=== PATIENT | female | born 1950 | race African-American/Black ===

== ENCOUNTER 2017-04-19 13:56 | Day surgery (SDC) | payer MEDICARE, MEDICAID ==
[2017-04-19] MEDS ORDERED: Epoetin 40,000 UNITS/ML VIAL SC SCH (14:15)
== END 2017-04-19 14:22 | disposition home or self-care (01) ==
LOC: ONC/OP 13:56
PROVIDERS: ATTEND Internal Medicine Medical Oncology
DX: I12.9 Hypertensive chronic kidney disease with stage 1 through stage 4 chronic kidney disease, or unspecified chronic kidney disease (principal); N18.9 Chronic kidney disease, unspecified; D63.1 Anemia in chronic kidney disease; E11.22 Type 2 diabetes mellitus with diabetic chronic kidney disease; D50.8 Other iron deficiency anemias; Z88.5 Allergy status to narcotic agent
CPT/HCPCS: 36415; 82728; 96372; J0885

== ENCOUNTER 2017-05-31 14:15 | Day surgery (SDC) | payer MEDICARE, MEDICAID ==
[2017-05-31 14:30] VITALS: BP 115/55
[2017-05-31] MEDS ORDERED: Epoetin 40,000 UNITS/ML VIAL SC SCH (14:30)
== END 2017-05-31 14:31 | disposition home or self-care (01) ==
LOC: ONC/OP 14:15
PROVIDERS: ATTEND Internal Medicine Medical Oncology
DX: N18.9 Chronic kidney disease, unspecified (principal); D63.1 Anemia in chronic kidney disease; D50.9 Iron deficiency anemia, unspecified
CPT/HCPCS: 96372; J0885

== ENCOUNTER 2017-07-19 14:27 | Day surgery (SDC) | payer MEDICARE, MEDICAID ==
[2017-07-19] MEDS ORDERED: Epoetin 40,000 UNITS/ML VIAL SC SCH (15:15)
== END 2017-07-19 15:13 | disposition home or self-care (01) ==
LOC: ONC/OP 14:27
PROVIDERS: ATTEND Internal Medicine Medical Oncology
DX: N18.9 Chronic kidney disease, unspecified (principal); D63.1 Anemia in chronic kidney disease; Z88.5 Allergy status to narcotic agent
CPT/HCPCS: 96372; J0885

== ENCOUNTER 2017-08-23 13:44 | Day surgery (SDC) | payer MEDICARE, MEDICAID ==
[2017-08-23] MEDS ORDERED: Epoetin (NON-ESRD) 20,000 UNITS/ML ML SC SCH (14:15)
[2017-08-23] MEDS ORDERED: Epoetin 40,000 UNITS/ML VIAL SC SCH (14:30)
[2017-08-23 16:56] VITALS: BP 118/57; TEMP 97.4
== END 2017-08-23 16:56 | disposition home or self-care (01) ==
LOC: ONC/OP 13:44
PROVIDERS: ATTEND Internal Medicine Medical Oncology
DX: N18.9 Chronic kidney disease, unspecified (principal); D63.1 Anemia in chronic kidney disease
CPT/HCPCS: 96372; J0885

== ENCOUNTER 2017-09-28 13:52 | Day surgery (SDC) | payer MEDICARE, MEDICAID ==
[2017-09-28] MEDS ORDERED: Epoetin 40,000 UNITS/ML VIAL SC SCH (14:15)
[2017-09-28 14:17] VITALS: BP 119/60; TEMP 98.1
== END 2017-09-28 14:29 | disposition home or self-care (01) ==
LOC: ONC/OP 13:52
PROVIDERS: ATTEND Internal Medicine Medical Oncology
DX: D50.9 Iron deficiency anemia, unspecified (principal); N18.9 Chronic kidney disease, unspecified; D63.1 Anemia in chronic kidney disease
CPT/HCPCS: 96372; J0885

== ENCOUNTER 2017-11-08 14:01 | Day surgery (SDC) | payer MEDICARE, MEDICAID ==
[2017-11-08] MEDS ORDERED: Epoetin 40,000 UNITS/ML VIAL SC SCH (14:30)
[2017-11-08] MEDS ORDERED: Epoetin (NON-ESRD) 20,000 UNITS/ML ML SC SCH (14:30)
== END 2017-11-08 15:04 | disposition home or self-care (01) ==
LOC: ONC/OP 14:01
PROVIDERS: ATTEND Internal Medicine Medical Oncology
DX: I12.9 Hypertensive chronic kidney disease with stage 1 through stage 4 chronic kidney disease, or unspecified chronic kidney disease (principal); E11.22 Type 2 diabetes mellitus with diabetic chronic kidney disease; N18.9 Chronic kidney disease, unspecified; D63.1 Anemia in chronic kidney disease; D50.8 Other iron deficiency anemias
CPT/HCPCS: 96372; J0885

== ENCOUNTER 2017-11-29 14:14 | Day surgery (SDC) | payer MEDICARE, MEDICAID ==
[2017-11-29] MEDS ORDERED: Epoetin 40,000 UNITS/ML VIAL SC SCH (14:30)
[2017-11-29 16:13] VITALS: BP 136/84; TEMP 98.4
== END 2017-11-29 16:13 | disposition home or self-care (01) ==
LOC: ONC/OP 14:14
PROVIDERS: ATTEND Internal Medicine Medical Oncology
DX: N18.9 Chronic kidney disease, unspecified (principal); D63.1 Anemia in chronic kidney disease; D50.9 Iron deficiency anemia, unspecified
CPT/HCPCS: 82728; 96372; J0885

== ENCOUNTER 2018-01-10 14:06 | Day surgery (SDC) | payer MEDICARE, MEDICAID ==
[2018-01-10] MEDS ORDERED: Epoetin 40,000 UNITS/ML VIAL SC SCH (14:15)
[2018-01-10 14:52] VITALS: BP 159/73; TEMP 98.1
== END 2018-01-10 14:56 | disposition home or self-care (01) ==
LOC: ONC/OP 14:06
PROVIDERS: ATTEND Internal Medicine Medical Oncology
DX: N18.9 Chronic kidney disease, unspecified (principal); D63.1 Anemia in chronic kidney disease; D50.9 Iron deficiency anemia, unspecified; Z88.5 Allergy status to narcotic agent
CPT/HCPCS: 96372; J0885

== ENCOUNTER 2018-02-07 13:49 | Day surgery (SDC) | payer MEDICARE, MEDICAID ==
[2018-02-07] MEDS ORDERED: Epoetin 40,000 UNITS/ML VIAL SC SCH (14:15)
[2018-02-07 17:57] VITALS: BP 127/65; TEMP 97.9
== END 2018-02-07 14:43 | disposition home or self-care (01) ==
LOC: ONC/OP 13:49
PROVIDERS: ATTEND Internal Medicine Medical Oncology
DX: N18.9 Chronic kidney disease, unspecified (principal); D63.1 Anemia in chronic kidney disease; D50.8 Other iron deficiency anemias; Z88.5 Allergy status to narcotic agent
CPT/HCPCS: 96372; J0885

== ENCOUNTER 2018-03-02 14:58 | Outpatient (CLI) | payer MEDICARE, MEDICAID | END 2018-03-02 14:59 | disposition home or self-care (01) | LOC: BICMAMMO 14:58 | PROVIDERS: ATTEND Internal Medicine | DX: Z12.31 Encounter for screening mammogram for malignant neoplasm of breast (principal); Z80.3 Family history of malignant neoplasm of breast | CPT/HCPCS: 77063; 77067 ==

== ENCOUNTER 2018-03-07 13:39 | Day surgery (SDC) | payer MEDICARE, MEDICAID ==
[2018-03-07] MEDS ORDERED: Epoetin 40,000 UNITS/ML VIAL SC SCH (14:00)
== END 2018-03-07 15:03 | disposition home or self-care (01) ==
LOC: ONC/OP 13:39
PROVIDERS: ATTEND Internal Medicine Medical Oncology
DX: N18.9 Chronic kidney disease, unspecified (principal); D63.1 Anemia in chronic kidney disease; D50.8 Other iron deficiency anemias
CPT/HCPCS: 96372; J0885

== ENCOUNTER 2018-05-09 14:13 | Day surgery (SDC) | payer MEDICARE, MEDICAID ==
[2018-05-09 14:27] VITALS: BP 115/56; TEMP 98.5
[2018-05-09] MEDS ORDERED: Epoetin 40,000 UNITS/ML VIAL SC SCH (14:30)
== END 2018-05-09 16:17 | disposition home or self-care (01) ==
LOC: ONC/OP 14:13
PROVIDERS: ATTEND Internal Medicine Medical Oncology
DX: N18.9 Chronic kidney disease, unspecified (principal); D63.1 Anemia in chronic kidney disease; D50.8 Other iron deficiency anemias
CPT/HCPCS: 96372; J0885

== ENCOUNTER 2018-07-04 13:55 | Day surgery (SDC) | payer MEDICARE, MEDICAID ==
[2018-07-04] MEDS ORDERED: Epoetin 40,000 UNITS/ML VIAL SC SCH (14:15)
== END 2018-07-04 14:56 | disposition home or self-care (01) ==
LOC: ONC/OP 13:55
PROVIDERS: ATTEND Internal Medicine Medical Oncology
DX: N18.9 Chronic kidney disease, unspecified (principal); D63.1 Anemia in chronic kidney disease; Z88.5 Allergy status to narcotic agent
CPT/HCPCS: 96372; J0885

== ENCOUNTER → 2018-08-01 | Day surgery (SDC) | payer MEDICARE, MEDICAID ==
[~2018-08-01] MED LIST: Epoetin 40,000 UNITS/ML VIAL SC SCH
== END ==
LOC: ONC/OP 14:00
PROVIDERS: ATTEND Internal Medicine Medical Oncology
DX: N18.9 Chronic kidney disease, unspecified (principal); D63.1 Anemia in chronic kidney disease; D50.8 Other iron deficiency anemias
CPT/HCPCS: 80048; 96372; J0885

== ENCOUNTER 2018-09-19 00:24 | Day surgery (SDC) | payer MEDICARE, MEDICAID ==
[2018-09-19] MEDS ORDERED: Epoetin 40,000 UNITS/ML VIAL SC SCH (15:30)
== END 2018-09-19 15:36 | disposition home or self-care (01) ==
LOC: ONC/OP 00:24
PROVIDERS: ATTEND Internal Medicine Medical Oncology
DX: N18.9 Chronic kidney disease, unspecified (principal); D63.1 Anemia in chronic kidney disease; D50.8 Other iron deficiency anemias
CPT/HCPCS: 96372; J0885

== ENCOUNTER 2018-10-24 14:24 | Day surgery (SDC) | payer MEDICARE, MEDICAID ==
[2018-10-24] MEDS ORDERED: Epoetin 40,000 UNITS/ML VIAL SC SCH (14:30)
[2018-10-24 14:35] VITALS: BP 178/77; TEMP 97.6
== END 2018-10-24 14:44 | disposition home or self-care (01) ==
LOC: ONC/OP 14:24
PROVIDERS: ATTEND Internal Medicine Medical Oncology
DX: N18.9 Chronic kidney disease, unspecified (principal); D63.1 Anemia in chronic kidney disease; D50.8 Other iron deficiency anemias
CPT/HCPCS: 96372; J0885

== ENCOUNTER 2018-11-29 14:44 | Emergency (ER) | payer MEDICARE, MEDICAID ==
[2018-11-29 15:11] LABS: Hemoglobin 11.4 g/dL (12.0-16.0)
[2018-11-29 15:30] LABS: Anion Gap 13 mmol/L (10-20); BUN (Urea Nitrogen) 35 mg/dL (9.8-20.1); Calc. Creatinine Clearance 0 mL/min (70-130); Calcium 9.4 mg/dL (7.8-10.44); Carbon Dioxide 26 mmol/L (23-31); Chloride 102 mmol/L (98-107); Estimated GFR-MDRD 44; Glucose 174 mg/dL (80-115); Potassium 5.3 mmol/L (3.5-5.1); Sodium 136 mmol/L (136-145)
--- NOTE | 2018-12-01 11:24 | EKG ---
Test Reason : Blood Pressure : / mmHG Vent. Rate : 055 BPM Atrial Rate : 055 BPM P-R Int : 150 ms QRS Dur : 084 ms QT Int : 416 ms P-R-T Axes : 062 -26 064 degrees QTc Int : 397 ms Sinus bradycardia Otherwise normal ECG Confirmed by DR. Juan VELEZ ([id number]) on 12/01/2018 11:23:44 AM Referred By: Confirmed By:DR. Juan VELEZ
== END 2018-11-29 18:54 | disposition home or self-care (01) ==
LOC: ERS 14:44
DX: E87.5 Hyperkalemia (principal); E11.9 Type 2 diabetes mellitus without complications; E78.5 Hyperlipidemia, unspecified; I10 Essential (primary) hypertension; F17.210 Nicotine dependence, cigarettes, uncomplicated
CPT/HCPCS: 36415; 80048; 85014; 85018; 93005; 96360

== ENCOUNTER 2018-12-19 14:21 | Day surgery (SDC) | payer MEDICARE, MEDICAID ==
[2018-12-19] MEDS ORDERED: EPOETIN ALFA-EPBX (NON-ESRD) 40,000 UNIT/ML VIAL SC SCH ×2 (14:45→15:00)
[2018-12-19 14:46] VITALS: BP 169/70; TEMP 97.7
[2018-12-19] MEDS ORDERED: EPOETIN ALFA-EPBX (ESRD) 40,000 UNIT/ML VIAL SC SCH (15:00)
== END 2018-12-19 15:29 | disposition home or self-care (01) ==
LOC: ONC/OP 14:21
PROVIDERS: ATTEND Internal Medicine Medical Oncology
DX: N18.9 Chronic kidney disease, unspecified (principal); D63.1 Anemia in chronic kidney disease; D50.8 Other iron deficiency anemias; Z88.5 Allergy status to narcotic agent
CPT/HCPCS: 96372

== ENCOUNTER 2019-01-23 15:38 | Outpatient (CLI) | payer MEDICARE, MEDICAID ==
--- NOTE | 2019-01-23 16:27 | RAD ---
Right hip 2 views HISTORY: Right hip pain. FINDINGS: Mild joint space narrowing, osteophytosis, and subchondral sclerosis. Enthesophytes are ismael dent about the pelvis and proximal femur. Calcification over the arterial structures. No acute fracture, dislocation, or aggressive osseous ero sions. IMPRESSION: Mild degenerative changes right hip. No acute osseous abnormalities are demonstrated. Atherosclerosis.
== END 2019-01-23 15:39 | disposition home or self-care (01) ==
LOC: BICRAD 15:38
PROVIDERS: ATTEND Internal Medicine
DX: M25.551 Pain in right hip (principal); M16.11 Unilateral primary osteoarthritis, right hip; I70.90 Unspecified atherosclerosis
CPT/HCPCS: 36415; 80053; 80061; 82043; 83036; 84443; 85025

== ENCOUNTER 2019-02-13 14:12 | Day surgery (SDC) | payer MEDICARE, MEDICAID ==
[2019-02-13 14:22] VITALS: BP 170/74; TEMP 97.5
[2019-02-13] MEDS ORDERED: EPOETIN ALFA-EPBX (ESRD) 40,000 UNIT/ML VIAL SC SCH (14:45)
== END 2019-02-13 14:47 | disposition home or self-care (01) ==
LOC: ONC/OP 14:12
PROVIDERS: ATTEND Internal Medicine Medical Oncology
DX: N18.9 Chronic kidney disease, unspecified (principal); D63.1 Anemia in chronic kidney disease; D50.8 Other iron deficiency anemias; Z88.5 Allergy status to narcotic agent
CPT/HCPCS: 96372; Q5105

== ENCOUNTER 2019-03-13 15:12 | Day surgery (SDC) | payer MEDICARE, MEDICAID ==
[2019-03-13] MEDS ORDERED: EPOETIN ALFA-EPBX (ESRD) 40,000 UNIT/ML VIAL ONE (15:24)
[2019-03-13] MEDS ORDERED: EPOETIN ALFA-EPBX (ESRD) 10,000 UNIT/ML VIAL SC SCH (15:30)
== END 2019-03-13 15:42 | disposition home or self-care (01) ==
LOC: ONC/OP 15:12
PROVIDERS: ATTEND Internal Medicine Medical Oncology
DX: N18.9 Chronic kidney disease, unspecified (principal); D63.1 Anemia in chronic kidney disease; D50.8 Other iron deficiency anemias; Z88.5 Allergy status to narcotic agent
CPT/HCPCS: 36415; 82728; 83540; 83550; 96372; Q5105

== ENCOUNTER 2019-08-25 17:02 | Observation (INO) | payer MEDICARE, MEDICAID ==
[~2019-08-25 17:02] MED LIST changes: -Epoetin 40,000 UNITS/ML VIAL SC SCH; +Iopamidol-370 76% 500 ML 1 ML ONE
--- NOTE | 2019-08-25 17:32 | RAD ---
XR Chest Pa Lat STANDARD HISTORY: Cough COMPARISON: 07/12/2013 FINDINGS: The heart size is normal. The lungs are well expanded without focal areas of consolidation, pneumothorax or pleural effusions. There are degenerative changes in the spine. IMPRESSION: No radiographic evidence of acute cardiopulmonary process.
[2019-08-25] MEDS ORDERED: methylPREDNISolone Sod Succ/PF 125 MG/2 ML VIAL ONE (20:48)
[2019-08-25 21:08] LABS: #Eosinphils 0.2 thou/uL (0.0-0.7); #Lymphocytes 1.9 thou/uL (1.20-3.40); #Monocytes 0.8 thou/uL (0.11-0.59); #Neutrophils 5.1 thou/uL (1.40-6.50); %Eosinophils 1.9 % (0.0-10.0); %Lymphocytes 23.9 % (21.0-51.0); %Monocytes 9.5 % (0.0-10.0); %Neutrophils 64.7 % (42.0-75.0); Hemoglobin 11.7 g/dL (12.0-16.0); Mean Corpuscular HGB CONC 34.1 g/dL (32.0-36.0); Mean Corpuscular Hemoglobin 29.8 pg (27.0-31.0); Mean Corpuscular Volume 87.5 fL (78.0-98.0); Mean Platelet Volume 7.2 fL (7.4-10.4); Platelet Count 345 thou/uL (130-400); RBC Distribution Width 13.5 % (11.5-14.5); Red Blood Cell (RBC) Count 3.91 mill/uL (4.20-5.40)
[2019-08-25 21:34] LABS: ALT (SGPT) 16 U/L (8-55); AST (SGOT) 29 U/L (5-34); Albumin 4.3 g/dL (3.4-4.8); Alkaline Phosphatase 114 U/L (40-110); Anion Gap 16 mmol/L (10-20); BUN (Urea Nitrogen) 15 mg/dL (9.8-20.1); Bilirubin, Total 0.8 mg/dL (0.2-1.2); Calc. Creatinine Clearance 0 mL/min (70-130); Calcium 9.2 mg/dL (7.8-10.44); Carbon Dioxide 29 mmol/L (23-31); Chloride 96 mmol/L (98-107); Estimated GFR-MDRD 58; Globulin 3.7 g/dL (2.4-3.5); Glucose 129 mg/dL (80-115); Lipase 34 U/L (8-78); Potassium 4.6 mmol/L (3.5-5.1); Sodium 136 mmol/L (136-145)
--- NOTE | 2019-08-25 22:41 | CT ---
CT NECK SOFT TISSUES WITH IV CONTRAST: History: Submandibular lymphadenopathy. Nonproductive cough. FINDINGS: The orbital contents have a normal appearance. No proptosis is seen. There is a mucous retention cyst versus polyp in the left maxillary sinus. The airway appears patent. The carotid and submandibular g lands are unremarkable. There is a 15 mm complex nodule noted in the inferior pole of the left lobe o f the thyroid gland. No lymphadenopathy is seen. No abnormal ocular air fluid collections noted. IMPRESSION: 1. No evidence of abscess. 2. Polyp/mucous retention cyst in the left maxillary sinus. 3. Left thyroid lobe nodule should be evaluated with ultrasound on a non-emergent basis. POS: OFF
[2019-08-25] MEDS ORDERED: Racepinephrine 2.25% 0.5 ML NEB ONE (22:59)
[2019-08-26] MEDS ORDERED: Bisacodyl 10 MG SUPP PR PRN (04:47)
[2019-08-26] MEDS ORDERED: Bisacodyl 5 MG TAB PO PRN (04:47)
[2019-08-26] MEDS ORDERED: Ondansetron PF 4 MG/2 ML Vial IVP PRN (04:47)
[2019-08-26] MEDS ORDERED: Acetaminophen 325 MG TAB PO PRN (04:47)
[2019-08-26] MEDS ORDERED: Bacteriostatic Water 30 ML VIAL FS PRN (04:54)
[2019-08-26] MEDS ORDERED: Dextrose 50% Abboject 50 ML SYRINGE SLOW IVP PRN (05:00)
[2019-08-26] MEDS ORDERED: Dextrose 5% in Water 1,000 ML IV PRN (05:00)
[2019-08-26] MEDS ORDERED: HumaLOG 300 UNITS/3 ML VIAL SC PRN (05:00)
--- NOTE | 2019-08-26 06:02 | HP ---
CHIEF COMPLAINT: Hoarseness. HISTORY OF PRESENT ILLNESS: The patient is a 68-year-old female with past medical history of diabetes and hypertension and anemia, who presents to the hospital with complaints of hoarseness and cough x1 day. The patient stated that on August 21, she received a Procrit shot and also received a pneumonia shot and since then she has not been feeling well. She stated that for the past 3 days, she has been having some sore throat and has been having a nonproductive cough. The patient states that on Monday morning she woke up, felt very hoarse and just did not feel well, so she came into the hospital for further evaluation. She denies any chest pain, any shortness of breath, any nausea, vomiting, or diarrhea. She denies taking any new medications. She does take lisinopril, however, she takes it every other week. PAST MEDICAL HISTORY: As of the following, she has a history of, 1. Diabetes. 2. Hypertension. 3. Obesity. 4. Hypercholesterolemia. 5. Anemia. 6. The patient has a history of asthma and uses inhalers at times. PAST SURGICAL HISTORY: She has had ovarian fibroid tumor removal. She has had lower back surgery. She has had cholecystectomy and also tubal ligation. MEDICATIONS: She currently does not have a list of her medications. SOCIAL HISTORY: The patient chews tobacco. Denies any alcohol use. However, also she denies any smoking history. She was a former smoker and she is a full code. REVIEW OF SYSTEMS: All negative except for the ones mentioned above in the HPI. FAMILY HISTORY: Has family history of hypertension and diabetes. PHYSICAL EXAMINATION: VITAL SIGNS: Temperature of 97.8, respirations of 14, oxygen saturation 100% on 2 L, blood pressure 140/60, and pulse is 65. GENERAL: She is awake, alert, and oriented x3. Does not appear in any distress. HEENT: Normocephalic, atraumatic. She does have some hoarseness when she talks. NECK: There is no lymphadenopathy noted. CARDIOVASCULAR: S1 and S2 present. No murmurs, rubs, or gallops. LUNGS: Clear to auscultation. No rhonchi or wheezes noted. ABDOMEN: Soft and nontender. Bowel sounds present x2. EXTREMITIES: She has some trace lower extremity edema. However, pedal pulses are present x2. NEUROVASCULAR: There are no focal deficits noted. SKIN: No cuts, lesions, or bruises noted. LABORATORY RESULTS: As of the following; WBCs of 8.0, hemoglobin of 11.7, hematocrit of 34.3, and platelets of 245. Chemistries; sodium of 136, potassium of 4.6, BUN of 15, and creatinine of 1.13. LFTs are normal. Alkaline phosphatase slightly elevated at 114. She did have a soft tissue CAT scan and a chest x-ray. This soft tissue CAT scan indicated no evidence of abscess. She has poly mucous retention cyst in the left maxillary sinuses. She also has a left thyroid lobe nodule and her chest x-ray that was done did not indicate any acute abnormalities. ASSESSMENT AND PLAN: The patient is a 68-year-old female, who presents to the hospital with hoarseness. 1. Hoarseness. The patient appeared to be a little hoarse at bedside. She states that she feels a lot better since she has been here. Initially, the patient's CT did not indicate any airway occlusion. However, the ER felt that her airway appeared to be narrow. At this time, I had asked them to call the radiologist to re-evaluate the CAT scan and the radiologist stated that the patient could have had a spasm. At this time, she was admitted only just for observation purposes. Her saturations were never dropped below 95%. She was at minimum at 90 to 93, and at this time, oxygen was applied. Her lungs are completely clear. Upon my evaluation, I did not feel that she had any swelling around her facial and the patient stated that she did not feel that her face felt more swollen than usual. At this time, I will start her on some Solu-Medrol. She was given racemic epinephrine and Solu-Medrol in the ER and we will continue to monitor. I will also start her on some Pepcid if they are allergic or reaction related. 2. Hypertension. I have asked her to bring her home medications. She is on lisinopril. She takes it every other day. However, I do not think her reaction currently is related to lisinopril, however, it is definitely a possibility. 3. Diabetes. I have asked her to bring her home medications also again. 4. Left thyroid nodule. I will check a TSH and a free T4 on her and I have asked her to follow up as an outpatient basis. She will need more further testing. 5. Anemia. She gets Procrit shots with Oncology as outpatient basis. 6. Deep venous thrombosis prophylaxis. We will put the patient on SCDs. Job ID: [id number]
[2019-08-26 06:39] LABS: Free T4 (Free Thyroxine) 0.96 ng/dL (0.70-1.48); Thyroid Stimulating Hormone 0.9433 uIU/mL (0.35-4.94)
[2019-08-26 08:56] VITALS: TEMP 97.6; BMI 30.8
[2019-08-26] MEDS ORDERED: Famotidine 20 MG TAB PO SCH (09:00)
[2019-08-26] MEDS ORDERED: methylPREDNISolone Sod Succ 40 MG VIAL IVP SCH ×2 (09:00→10:00)
[2019-08-26] MEDS ORDERED: methylPREDNISolone Sod Succ/PF 125 MG/2 ML VIAL IVP SCH (09:00)
[2019-08-26] MEDS ORDERED: Enoxaparin Sodium 40 MG/0.4 ML SYRINGE SC SCH (09:00)
[2019-08-26 12:12] VITALS: BP 146/65
--- NOTE | 2019-08-27 02:09 | DIS ---
DATE OF ADMISSION: 08/26/2019 DATE OF DISCHARGE: 08/26/2019 DISCHARGE DIAGNOSES: 1. Hoarseness. 2. Throat swelling, possibly contributed by lisinopril. 3. Hypertension. 4. Type 2 diabetes mellitus. 5. Left thyroid nodule. DISCHARGE MEDICATIONS: 1. Amlodipine 10 mg daily. 2. Diclofenac 75 mg as needed. 3. Metoprolol succinate 25 mg daily. 4. Metformin 1000 mg in the daytime and 500 mg at bedtime. PHYSICAL EXAMINATION: VITAL SIGNS: On the day of discharge, she is afebrile with a temp of 97.6, pulse 92, blood pressure 144/64. GENERAL: She is doing well. She is able to swallow and completed her p.o. intake this morning breakfast. She still has mild swelling. Otherwise, her dysarthria resolved. HEENT: Examination of the throat did not reveal any significant abnormalities. CARDIOVASCULAR: Regular rate and rhythm without murmurs, rubs, or gallops. LUNGS: Clear to auscultation bilaterally without wheezing, rales, or rhonchi. ABDOMEN: Soft, nontender, nondistended. Good bowel sounds. EXTREMITIES: Without any pitting edema. No neurological focal deficits appreciated. HOSPITAL COURSE: A 68-year-old female with a history of hypertension, obesity, hypercholesterolemia, history of loss asthma and occasional use of inhaler, presented with hoarseness and cough of one day duration. She got a Pneumovax on 08/21, along with Procrit shot. Since then, she had some sore throat and nonproductive cough and when she woke up yesterday morning, she felt quite, her voice was very hoarse and did not feel good. She was admitted yesterday for overnight observation. CT did not reveal any abnormality and felt that it could be spasm in her pharynx area. Her sats were overnight without any drop. She did receive the Solu-Medrol in the ER as well as given a dose in the morning given her mild swelling. She also received racemic epinephrine in the ER. I have reviewed her medications. She is on lisinopril, which I have discontinued and also discussed with the patient on not to take that medicine anymore. She is on Toprol-XL and her blood pressure seems to be controlled adequately with Toprol alone. If needed, additional non-ROHIT inhibitor medication can be considered in the outpatient setting. During the hospitalization, her blood pressure is relatively controlled and did not require any additional medication. Left thyroid nodule requires outpatient workup through her PCP The patient is clinically stable. She will be discharged today. Again, she has been informed not to take the lisinopril anymore. DISCHARGE INSTRUCTIONS: Activity as tolerated. Healthy heart as well as diabetic diet. Job ID: [id number] MTDD
== END 2019-08-26 14:55 | disposition home or self-care (01) ==
LOC: ERS 17:02 → ERHOLD 08-26 01:47 → 2SW 08-26 08:23
PROVIDERS: ADMIT Internal Medicine; ATTEND Internal Medicine
DX: R49.0 Dysphonia (principal); R22.1 Localized swelling, mass and lump, neck; R05 Cough; I10 Essential (primary) hypertension; E11.9 Type 2 diabetes mellitus without complications; E04.1 Nontoxic single thyroid nodule; E78.00 Pure hypercholesterolemia, unspecified; J45.909 Unspecified asthma, uncomplicated; D64.9 Anemia, unspecified; F17.220 Nicotine dependence, chewing tobacco, uncomplicated; J34.89 Other specified disorders of nose and nasal sinuses; E66.9 Obesity, unspecified; Z68.30 Body mass index [BMI] 30.0-30.9, adult; Z79.84 Long term (current) use of oral hypoglycemic drugs; Z79.899 Other long term (current) drug therapy; Z88.5 Allergy status to narcotic agent; Z88.8 Allergy status to other drugs, medicaments and biological substances
CPT/HCPCS: 70491; 71046; 80053; 82962; 83690; 84439; 84443; 85025; 87804 ×2; 94640; 96372; 96374; 96376; 99285; G0378 ×2; 36415; 36416; J1650; J2920; J2930; J7620; Q9967

== ENCOUNTER 2019-09-05 14:19 | Outpatient (CLI) | payer MEDICARE, MEDICAID ==
--- NOTE | 2019-09-05 14:59 | MMO ---
Bilateral MAMMO Bilat Screen [facility]. CLINICAL HISTORY: Patient is 68 years old and is seen for screening. The patient has the following family history of breast cancer: sister. The patient has no personal history of cancer. VIEWS: The views performed were: bilateral craniocaudal with tomosynthesis; bilateral mediolateral oblique with tomosynthesis; and left craniocaudal. FILMS COMPARED: The present examination has been compared to prior imaging studies performed at [facility] on 07/02/2012, 02/04/2016, 02/08/2017 and 03/02/2018. This study has been interpreted with the assistance of computer-aided detection. MAMMOGRAM FINDINGS: There are scattered fibroglandular densities. There are stable benign appearing calcifications seen in both breasts. There are also vascular calcifications. Nodularity is stable. There are no suspicious masses, suspicious calcifications, or new areas of architectural distortion. IMPRESSION: THERE IS NO MAMMOGRAPHIC EVIDENCE OF MALIGNANCY. A ROUTINE FOLLOW-UP MAMMOGRAM IN 1 YEAR IS RECOMMENDED. THE RESULTS OF THIS EXAM WERE SENT TO THE PATIENT. ACR BI-RADS Category 2 - Benign finding MAMMOGRAPHY NOTE: 1. A negative mammogram report should not delay a biopsy if a dominant of clinically suspicious mass is present. 2. Approximately 10% to 15% of breast cancers are not detected by mammography. 3. Adenosis and dense breasts may obscure an underlying neoplasm. Reported by: KATRIN HOPE MD Electonically Signed: [id number]
== END 2019-09-05 14:20 | disposition home or self-care (01) ==
LOC: BICMAMMO 14:19
PROVIDERS: ATTEND Internal Medicine
DX: Z12.31 Encounter for screening mammogram for malignant neoplasm of breast (principal); Z80.3 Family history of malignant neoplasm of breast
CPT/HCPCS: 77063; 77067

== ENCOUNTER 2019-10-24 21:33 | Inpatient (IN) | payer MEDICARE, MEDICAID, OTHER ==
[2019-10-24 22:18] LABS: #Lymphocytes 1.7 thou/uL (1.20-3.40); #Monocytes 0.5 thou/uL (0.11-0.59); #Neutrophils 4.6 thou/uL (1.40-6.50); %Basophils 0.6 % (0.0-1.0); %Eosinophils 0.1 % (0.0-10.0); %Monocytes 7.9 % (0.0-10.0); %Neutrophils 66.4 % (42.0-75.0); Hemoglobin 11.9 g/dL (12.0-16.0); Mean Corpuscular HGB CONC 32.3 g/dL (32.0-36.0); Mean Corpuscular Hemoglobin 28.6 pg (27.0-31.0); Mean Corpuscular Volume 88.8 fL (78.0-98.0); Mean Platelet Volume 7.5 fL (7.4-10.4); Platelet Count 275 thou/uL (130-400); RBC Distribution Width 13.3 % (11.5-14.5); Red Blood Cell (RBC) Count 4.15 mill/uL (4.20-5.40); White Blood Cell (WBC) Count 6.9 thou/uL (4.8-10.8)
[2019-10-24 22:40] LABS: ALT (SGPT) 31 U/L (8-55); AST (SGOT) 72 U/L (5-34); Albumin 4.5 g/dL (3.4-4.8); Alkaline Phosphatase 114 U/L (40-110); Anion Gap 19 mmol/L (10-20); BUN (Urea Nitrogen) 31 mg/dL (9.8-20.1); Bilirubin, Total 0.6 mg/dL (0.2-1.2); CK (CPK) 588 U/L (29-168); Calc. Creatinine Clearance 0 mL/min (70-130); Calcium 9.3 mg/dL (7.8-10.44); Carbon Dioxide 24 mmol/L (23-31); Chloride 97 mmol/L (98-107); Estimated GFR-MDRD 36; Globulin 3.7 g/dL (2.4-3.5); Glucose 174 mg/dL (80-115); Potassium 4.8 mmol/L (3.5-5.1); Protein, Total 8.2 g/dL (6.0-8.3); Sodium 135 mmol/L (136-145)
[2019-10-24 23:02] LABS: CKMB 3.4 ng/mL (0-6.6)
--- NOTE | 2019-10-24 23:10 | RAD ---
PORTABLE CHEST; 10/24/19 PROVIDED CLINICAL HISTORY: Cough and fever. Cardiac and mediastinal silhouette is within normal limits for portable technique. No focal consolid ation, pleural fluid or pneumothorax apparent. IMPRESSION: No evidence for an acute cardiopulmonary process. POS: FABIOLA
[2019-10-24] MEDS ORDERED: Aspirin Chewable 81 MG TAB ONE (23:21)
[2019-10-24] MEDS ORDERED: Acetaminophen 500 MG TAB ONE (23:31)
[2019-10-25 01:44] LABS: Troponin I 0.049 ng/mL (< 0.028)
[2019-10-25 05:33] LABS: Troponin I 0.029 ng/mL (< 0.028)
[2019-10-25] MEDS ORDERED: Ondansetron ODT 4 MG TAB PO PRN (08:32)
[2019-10-25] MEDS ORDERED: Ondansetron PF 4 MG/2 ML Vial IVP PRN (08:32)
[2019-10-25] MEDS ORDERED: Calcium Carbonate 500 MG ChewTAB PO PRN (08:32)
[2019-10-25] MEDS ORDERED: PROVENTIL INHALER 6.7 G (200 INHALATIONS) INH PRN (08:35)
[2019-10-25] MEDS ORDERED: traMADol HCl 50 MG TAB PO PRN (08:35)
[2019-10-25] MEDS ORDERED: Famotidine 20 MG TAB PO SCH (09:00)
[2019-10-25] MEDS: Multivit, Therapeutic 1 TAB PO SCH (10:40)
[2019-10-25] MEDS: Sodium Chloride 0.9% 1,000 ML IV SCH (10:40)
--- NOTE | 2019-10-25 13:14 | EKG ---
Test Reason : COUGH Blood Pressure : / mmHG Vent. Rate : 087 BPM Atrial Rate : 087 BPM P-R Int : 138 ms QRS Dur : 096 ms QT Int : 354 ms P-R-T Axes : 065 -37 064 degrees QTc Int : 425 ms Normal sinus rhythm Left axis deviation Incomplete right bundle branch block Septal infarct , age undetermined Abnormal ECG Confirmed by KATT JOYNER DO ([id number]), manager staffing HUGO MARTINES ([id number]) on 10/25/2019 1:14:31 PM Referred By: AR Confirmed By:KATT JOYNER DO
--- NOTE | 2019-10-25 14:17 | HP ---
PRIMARY CARE PHYSICIAN: Zainab Shah MD CHIEF COMPLAINT: Generalized weakness. HISTORY OF PRESENT ILLNESS: The patient is a 68-year-old female with diabetes mellitus type 2, hypertension, and hyperlipidemia, was brought into the emergency room with above complaints. Over the last 3 days, the patient is not feeling well. She has some nausea without any vomiting. She also had intermittent fever without any chills. She did not record her temperature. She had a dry cough along with some runny nose. She also has lost her taste and is unable to smell. Her daughter was recently tested positive for COVID-19. She was in contact with the daughter last week. Due to her worsening symptoms, she presented to the emergency room. She also had some diarrhea, which has resolved at this time. In the emergency room, her initial vital signs showed temperature 99.1, respirations of 18, pulse of 91 with a blood pressure of 170/70 with O2 saturation 92% on room air. Maximal temperature in the ER was 100.9. PAST MEDICAL HISTORY: 1. Diabetes mellitus, type 2. 2. Hypertension. 3. Obesity with a BMI of 30.5. 4. Hyperlipidemia. 5. Chronic anemia. 6. Mild intermittent asthma. PAST SURGICAL HISTORY: 1. Ovarian fibroid tumor removal. 2. Low back surgery. 3. Cholecystectomy. 4. Tubal ligation. ALLERGIES: THE PATIENT IS ALLERGIC TO CODEINE AND LISINOPRIL. SOCIAL HISTORY: The patient chews tobacco. No alcohol or drug use. She is a former smoker. She makes her own decision with the help of her family. She is full code. FAMILY HISTORY: Positive for hypertension and diabetes. REVIEW OF SYSTEMS: All other review of systems were reviewed and were found negative. PHYSICAL EXAMINATION: VITAL SIGNS: As discussed above. GENERAL: A 68-year-old female, ill appearing. HEENT: Head; atraumatic and normocephalic. No oral lesion. NECK: Supple. No JVD. No carotid bruit. LUNGS: Showed scattered rhonchi at bilateral bases. No wheezing or rales. HEART: S1 and S2 present. Regular rate and rhythm. No rubs or gallops. ABDOMEN: Soft, nontender. Bowel sounds present. No rebound or guarding. EXTREMITIES: No edema or calf tenderness. NEUROLOGY: Grossly nonfocal. Moves all 4 extremities. PSYCHIATRY: Alert, awake, and oriented x3. SKIN: Warm and dry. LYMPH NODES: No palpable lymph nodes in the neck. PERIPHERAL VASCULAR: Radial pulses palpable bilaterally. MUSCULOSKELETAL: No joint swelling or tenderness. LABORATORY FINDINGS: 1. CBC showed WBC 6.9 with hemoglobin 11.9, hematocrit 36.9, and platelet of 270. 2. Chemistries showed sodium 135, potassium 4.8, chloride 97, bicarb 24, BUN 31, creatinine 1.7. 3. AST of 72, alkaline phosphatase 114. 4. Troponin maximum of 0.049. IMAGING DATA: 1. Chest x-ray by my review was negative for infiltrate or edema. 2. EKG by my review showed sinus rhythm with incomplete right bundle-branch block. IMPRESSION: 1. Acute viral syndrome, rule out COVID-19. 2. Acute kidney injury on chronic kidney disease, stage 3. 3. Abnormal LFTs. 4. Elevated troponin, suspected type 2 myocardial infarction. 5. Hyponatremia. 6. Hypertension. 7. Diabetes mellitus, type 2. 8. Hyperlipidemia. 9. Obesity with a BMI of 30.5. 10. Tobacco dependence. 11. Chronic anemia, followed by Dr. Bhatt. PLAN: The patient will be monitored in the telemetry unit. We will place on droplet isolation. We will start her on gentle IV hydration due to NENO. Insulin sliding scale will be started once COVID 19 is ruled out. Albuterol inhaler as needed. We will resume amlodipine and metoprolol. We will start empiric doxycycline. We will check CRP and ferritin in a.m. Recheck LFTs in a.m. We will obtain an echocardiogram once COVID-19 has been ruled out. Continue telemetry monitoring. The patient understands the above plan of care. Job ID: [id number] MTDD
[2019-10-25] MEDS: Acetaminophen 325 MG TAB PO PRN (17:59)
[2019-10-25] MEDS: hydrALAZINE 20 MG/ML VIAL SLOW IVP PRN (17:59)
[2019-10-25] MEDS: Doxycycline 100 MG CAP PO SCH (20:29)
[2019-10-26] MEDS: Acetaminophen 325 MG TAB PO PRN ×4 (05:06→23:30)
[2019-10-26 05:27] LABS: ALT (SGPT) 19 U/L (8-55); AST (SGOT) 36 U/L (5-34); Albumin 3.8 g/dL (3.4-4.8); Alkaline Phosphatase 93 U/L (40-110); Anion Gap 15 mmol/L (10-20); BUN (Urea Nitrogen) 20 mg/dL (9.8-20.1); Bilirubin, Total 0.3 mg/dL (0.2-1.2); CRP (Inflammatory) 13.78 mg/dL (= or < 0.5); Calc. Creatinine Clearance 57 mL/min (70-130); Calcium 8.6 mg/dL (7.8-10.44); Carbon Dioxide 25 mmol/L (23-31); Chloride 100 mmol/L (98-107); Estimated GFR-MDRD 60; Globulin 3.3 g/dL (2.4-3.5); Glucose 124 mg/dL (80-115); Magnesium 1.4 mg/dL (1.6-2.6); Potassium 4.5 mmol/L (3.5-5.1); Protein, Total 7.1 g/dL (6.0-8.3); Sodium 135 mmol/L (136-145)
[2019-10-26 05:46] LABS: Band 11 % (5-11); Hemoglobin 10.8 g/dL (12.0-16.0); Lymphocytes 13 % (21-51); MDiff Complete? YES; Mean Corpuscular HGB CONC 32.1 g/dL (32.0-36.0); Mean Corpuscular Hemoglobin 28.4 pg (27.0-31.0); Mean Corpuscular Volume 88.4 fL (78.0-98.0); Mean Platelet Volume 7.8 fL (7.4-10.4); Monocytes 5 % (0-10); Neutrophil 71 % (42-75); Platelet Count 244 thou/uL (130-400); RBC Distribution Width 13.1 % (11.5-14.5); White Blood Cell (WBC) Count 5.7 thou/uL (4.8-10.8)
[2019-10-26] MEDS: Sodium Chloride 0.9% 1,000 ML IV SCH (07:59)
[2019-10-26] MEDS: Famotidine 20 MG TAB PO SCH (08:03)
[2019-10-26] MEDS: Multivit, Therapeutic 1 TAB PO SCH (08:03)
[2019-10-26] MEDS: Doxycycline 100 MG CAP PO SCH (08:03)
[2019-10-26] MEDS: Fluticasone Propionate Nasal Spray 16 gm Bottle NASAL SCH (08:06)
[2019-10-26] MEDS ORDERED: Amlodipine 5 MG TAB PO SCH (09:00)
--- NOTE | 2019-10-26 11:53 | PDOC.HOSPP ---
- Subjective Encounter Date: 10/26/19 Encounter Time: 11:00 Subjective: c/o stuff nose, no trouble breathing or chest pain is eating well, says she slept well last night - Objective Vital Signs & Weight: Vital Signs (12 hours) Temp Pulse Resp BP BP Pulse Ox 10/26/19 08:02 85 153/72 H 10/26/19 07:56 100.3 F H 85 20 153/72 H 95 10/26/19 04:00 100.0 F H 81 18 162/79 H 97 10/26/19 02:34 101.5 F H Weight Admit Weight 166 lb 11.2 oz Weight 166 lb 11.2 oz I&O: 10/25/19 10/26/19 10/27/19 06:59 06:59 06:59 Intake Total 50 1045 Output Total 1105 Balance 50 -60 Result Diagrams: 10/26/19 04:48 10/26/19 04:48 Hospitalist ROS - Medication Medications: Active Medications Generic Name Dose Route Start Last Admin Trade Name Freq PRN Reason Stop Dose Admin Acetaminophen 650 mg 10/25/19 08:32 10/26/19 05:06 Tylenol PO 650 mg Q4H PRN Administration Headache/Fever/Mild Pain (1-3) Amlodipine Besylate 5 mg 10/26/19 09:00 10/26/19 08:02 Norvasc PO 5 mg DAILY CORNELIUS Administration Doxycycline Hyclate 100 mg 10/25/19 21:00 10/26/19 08:03 Vibramycin PO 100 mg BID CORNELIUS Administration Famotidine 20 mg 10/26/19 09:00 10/26/19 08:03 Pepcid PO 20 mg DAILY CORNELIUS Administration Fluticasone Propionate 0 gm 10/26/19 09:00 10/26/19 08:06 Flonase Nasal [place] NASAL Not Given DAILY CORNELIUS Hydralazine HCl 10 mg 10/25/19 13:52 10/25/19 17:59 Apresoline SLOW IVP 10 mg Q4H PRN Administration SBP Greater Than 180 Metoprolol Succinate 25 mg 10/25/19 09:00 10/26/19 08:03 Toprol Xl PO 25 mg DAILY CORNELIUS Administration Multivitamins 1 tab 10/25/19 09:00 10/26/19 08:03 Theragran PO 1 tab DAILY CORNELIUS Administration - Exam General Appearance: awake alert Eye: PERRL, anicteric sclera ENT: no oropharyngeal lesions, moist mucosa Neck: supple, no JVD Heart: RRR, no murmur Respiratory: no wheezes, no rales, rhonchi Gastrointestinal: soft, non-tender, non-distended, normal bowel sounds Extremities: no cyanosis, no edema Neurological: cranial nerve grossly intact, no focal deficits Psychiatric: A&O x 3 Hosp A/P (1) COVID-19 Code(s): U07.1 - COVID-19 Status: Suspected (2) Fever Code(s): R50.9 - FEVER, UNSPECIFIED Status: Acute Qualifiers: Fever type: unspecified Qualified Code(s): R50.9 - Fever, unspecified (3) Viral syndrome Status: Suspected (4) NENO (acute kidney injury) Code(s): N17.9 - ACUTE KIDNEY FAILURE, UNSPECIFIED Status: Resolved (5) Obesity (BMI 30.0-34.9) Code(s): E66.9 - OBESITY, UNSPECIFIED Status: Chronic (6) DM type 2 (diabetes mellitus, type 2) Status: Chronic Qualifiers: Diabetes mellitus skilled nursing insulin use: without predatory animal exterminator use (7) HTN (hypertension) Code(s): I10 - ESSENTIAL (PRIMARY) HYPERTENSION Status: Chronic Qualifiers: Hypertension type: essential hypertension Qualified Code(s): I10 - Essential (primary) hypertension (8) Dyslipidemia Code(s): E78.5 - HYPERLIPIDEMIA, UNSPECIFIED Status: Chronic (9) Chronic anemia Code(s): D64.9 - ANEMIA, UNSPECIFIED Status: Chronic (10) H/O extrinsic asthma Code(s): Z87.09 - PERSONAL HISTORY OF OTHER DISEASES OF THE RESPIRATORY SYSTEM Status: Chronic - Plan await covid 19 results, daughter was +ve for it and got exposed, her son is also in the hospital with fever on doxy, alb inhaler, flonase nasal spray, norvasc, toprol xl dc iv fluids tmax of around 100 degrees renal function is back to normal hemostable to ambulate in room as tolerated
[2019-10-26] MEDS: hydrALAZINE 20 MG/ML VIAL SLOW IVP PRN (15:31)
[2019-10-26] MEDS: Azithromycin 500 MG in Sodium Chloride 0.9% 250 ML 250 ML IVPB SCH (17:04)
[2019-10-26 17:35] LABS: Bilirubin Negative (Negative); Blood, Urine Trace (Negative); Clarity Clear (Clear); Glucose, Urine (Dipstick) Normal (Negative); Leukocyte 75 Leu/uL (Negative); Nitrite Negative (Negative); Protein, Urine (Dipstick) 50 mg/dL (Neg-Trace); RBC/HPF 0-3 HPF (0-3); Urobilinogen Normal mg/dL (Less than 2)
[2019-10-26 17:37] LABS: Bacteria/HPF 1+ HPF (None Seen)
[2019-10-26 17:38] LABS: Urine Culture Reflex No No
[2019-10-26] MEDS: Cefepime 1 GM in Sodium Chloride 0.9% 100 ML IVPB SCH (20:25)
[2019-10-26] MEDS: Metoprolol Tartrate 50 MG TAB PO SCH (20:26)
[2019-10-27] MEDS: Cefepime 1 GM in Sodium Chloride 0.9% 100 ML IVPB SCH (04:33)
[2019-10-27] MEDS: Acetaminophen 325 MG TAB PO PRN ×3 (04:34→17:12)
--- NOTE | 2019-10-27 07:43 | RAD ---
SINGLE VIEW CHEST: Date: 10/27/2019 COMPARISON: 10/24/2019. HISTORY: Cough and shortness of breath. Suspected COVID-19. FINDINGS: Single view of the chest shows normal sized cardiomediastinal silhouette. There is no evidence of ple ural effusion. Increased interstitial lung markings are present, which are slightly more prominent th an the prior exam. No obvious consolidation is seen. Degenerative changes are seen in the spine. IMPRESSION: Slight increase in interstitial lung markings. POS: C
[2019-10-27] MEDS: Fluticasone Propionate Nasal Spray 16 gm Bottle NASAL SCH (09:49)
[2019-10-27] MEDS: Metoprolol Tartrate 50 MG TAB PO SCH ×2 (09:49→20:27)
[2019-10-27] MEDS: Multivit, Therapeutic 1 TAB PO SCH (09:49)
[2019-10-27] MEDS: Amlodipine 10 MG TAB PO SCH (09:49)
[2019-10-27] MEDS: Famotidine 20 MG TAB PO SCH (09:49)
--- NOTE | 2019-10-27 10:16 | PDOC.HOSPP ---
- Subjective Encounter Date: 10/27/19 Encounter Time: 09:15 Subjective: awake, no sob is eating and ambulating in room - Objective Vital Signs & Weight: Vital Signs (12 hours) Temp Pulse Resp BP Pulse Ox 10/27/19 09:49 82 10/27/19 09:44 101.1 F H 82 20 153/70 H 95 10/27/19 07:28 97 10/27/19 04:00 101.3 F H 76 20 163/71 H 97 10/26/19 23:29 102.2 F H 74 20 158/71 H 93 L Weight Admit Weight 166 lb 11.2 oz Weight 166 lb 11.2 oz I&O: 10/26/19 10/27/19 10/28/19 06:59 06:59 06:59 Intake Total 1045 1350 Output Total 1105 775 Balance -60 575 Result Diagrams: 10/26/19 04:48 10/26/19 04:48 Hospitalist ROS - Medication Medications: Active Medications Generic Name Dose Route Start Last Admin Trade Name Freq PRN Reason Stop Dose Admin Acetaminophen 650 mg 10/25/19 08:32 10/27/19 09:49 Tylenol PO 650 mg Q4H PRN Administration Headache/Fever/Mild Pain (1-3) Amlodipine Besylate 10 mg 10/27/19 09:00 10/27/19 09:49 Norvasc PO 10 mg DAILY CORNELIUS Administration Famotidine 20 mg 10/26/19 09:00 10/27/19 09:49 Pepcid PO 20 mg DAILY CORNELIUS Administration Fluticasone Propionate 0 gm 10/26/19 09:00 10/27/19 09:49 Flonase Nasal [place] NASAL Not Given DAILY CORNELIUS Hydralazine HCl 10 mg 10/25/19 13:52 10/26/19 15:31 Apresoline SLOW IVP 10 mg Q4H PRN Administration SBP Greater Than 180 Azithromycin 500 mg/ Sodium 250 mls @ 250 mls/hr 10/26/19 17:00 10/26/19 17: 04 Chloride IVPB 250 mls 1700 CORNELIUS Administration Cefepime HCl 1 gm/ Sodium 100 mls @ 200 mls/hr 10/26/19 18:00 10/27/19 04:33 Chloride IVPB 100 mls 0600,1800 CORNELIUS Administration Metoprolol Tartrate 50 mg 10/26/19 21:00 10/27/19 09:49 Lopressor PO 50 mg BID CORNELIUS Administration Multivitamins 1 tab 10/25/19 09:00 10/27/19 09:49 Theragran PO 1 tab DAILY CORNELIUS Administration - Exam General Appearance: awake alert Eye: PERRL, anicteric sclera ENT: no oropharyngeal lesions Neck: supple, no JVD Heart: RRR, no murmur Respiratory: no wheezes, no rales, rhonchi Gastrointestinal: soft, non-tender, non-distended, normal bowel sounds Extremities: no cyanosis, no edema Neurological: cranial nerve grossly intact, no focal deficits Psychiatric: normal affect, A&O x 3 Hosp A/P (1) COVID-19 Code(s): U07.1 - COVID-19 Status: Suspected (2) Fever Code(s): R50.9 - FEVER, UNSPECIFIED Status: Acute Qualifiers: Fever type: unspecified Qualified Code(s): R50.9 - Fever, unspecified (3) Viral syndrome Status: Suspected (4) NENO (acute kidney injury) Code(s): N17.9 - ACUTE KIDNEY FAILURE, UNSPECIFIED Status: Resolved (5) Obesity (BMI 30.0-34.9) Code(s): E66.9 - OBESITY, UNSPECIFIED Status: Chronic (6) DM type 2 (diabetes mellitus, type 2) Status: Chronic Qualifiers: Diabetes mellitus chcf insulin use: without chcf use (7) HTN (hypertension) Code(s): I10 - ESSENTIAL (PRIMARY) HYPERTENSION Status: Chronic Qualifiers: Hypertension type: essential hypertension Qualified Code(s): I10 - Essential (primary) hypertension (8) Dyslipidemia Code(s): E78.5 - HYPERLIPIDEMIA, UNSPECIFIED Status: Chronic (9) Chronic anemia Code(s): D64.9 - ANEMIA, UNSPECIFIED Status: Chronic (10) H/O extrinsic asthma Code(s): Z87.09 - PERSONAL HISTORY OF OTHER DISEASES OF THE RESPIRATORY SYSTEM Status: Chronic - Plan await covid 19 results, daughter was +ve for it and is currently in ICU at [facility], pt got exposed, her son is also in the hospital with fever on cefepime, zithromax, alb inhaler, flonase nasal spray, norvasc, toprol xl tmax of around 101 degrees renal function is back to normal hemostable to ambulate in room as tolerated has high likelihood of Covid 19, if initial test is -ve will need repeat testing (jameson galvan droplet and airborne precautions if first test is -ve)
[2019-10-27 13:18] LABS: #Lymphocytes 1.1 thou/uL (1.20-3.40); #Monocytes 0.3 thou/uL (0.11-0.59); #Neutrophils 4.1 thou/uL (1.40-6.50); %Basophils 0.4 % (0.0-1.0); %Eosinophils 0.1 % (0.0-10.0); %Lymphocytes 19.4 % (21.0-51.0); %Monocytes 4.7 % (0.0-10.0); %Neutrophils 75.5 % (42.0-75.0); Hemoglobin 11.7 g/dL (12.0-16.0); Mean Corpuscular HGB CONC 32.9 g/dL (32.0-36.0); Mean Corpuscular Hemoglobin 29.4 pg (27.0-31.0); Mean Corpuscular Volume 89.6 fL (78.0-98.0); Mean Platelet Volume 8.2 fL (7.4-10.4); Platelet Count 260 thou/uL (130-400); RBC Distribution Width 13.4 % (11.5-14.5); Red Blood Cell (RBC) Count 3.97 mill/uL (4.20-5.40); White Blood Cell (WBC) Count 5.5 thou/uL (4.8-10.8)
[2019-10-27] MEDS ORDERED: Dextrose 50% Abboject 50 ML SYRINGE SLOW IVP PRN (13:36)
[2019-10-27] MEDS ORDERED: Dextrose 5% in Water 1,000 ML IV PRN (13:36)
[2019-10-27 13:39] LABS: ALT (SGPT) 17 U/L (8-55); AST (SGOT) 35 U/L (5-34); Alkaline Phosphatase 95 U/L (40-110); Anion Gap 17 mmol/L (10-20); BUN (Urea Nitrogen) 19 mg/dL (9.8-20.1); Bilirubin, Total 0.3 mg/dL (0.2-1.2); CRP (Inflammatory) 23.49 mg/dL (= or < 0.5); Calc. Creatinine Clearance 49 mL/min (70-130); Calcium 9.2 mg/dL (7.8-10.44); Carbon Dioxide 23 mmol/L (23-31); Chloride 101 mmol/L (98-107); Estimated GFR-MDRD 50; Globulin 3.9 g/dL (2.4-3.5); Glucose 163 mg/dL (80-115); Potassium 4.8 mmol/L (3.5-5.1); Protein, Total 7.9 g/dL (6.0-8.3); Sodium 136 mmol/L (136-145)
--- NOTE | 2019-10-27 15:16 | CON ---
DATE OF CONSULTATION: 10/27/2019 REASON FOR CONSULTATION: COVID-19 infection. HISTORY OF PRESENT ILLNESS: A 68-year-old who has a history of hypertension, type 2 diabetes. On 08/26, she was admitted to the hospital with a history of asthma and hoarseness and cough for a day duration, some sore throat. The patient at that moment had a CT of the neck, which demonstrated some oval-shaped lymph nodes, some polyp, mucous retention cyst in the left maxillary sinus. There is a thyroid nodule too, it was not felt to be an emergency. She was discharged and then she came to the emergency room a week before reportedly, was released, and then she came back on 10/23 with diarrhea and cough, some nausea, fevers on and off, little bit of rhinorrhea and she had loss of sense of smell. She had an exposure to her daughter, which had recently been tested for positive and was admitted to [facility]. On arrival, her BP 170/70, pulse 91, respirations 18, temperature 99.1, and O2 saturation 92 on room air. She was awake and alert. Breath sounds were clear. Heart exam normal. Abdomen is soft with mild tenderness, which is generalized. No edema. Other findings are white cell count 6.9, hemoglobin 11.9, and platelets 275 with normal differential and the lymphocyte count was 1.7. D-dimer was 1.74 today. Chemistry with a creatinine 1.7, glucose 174, AST 72, alkaline phosphatase 114, CK 588, and globulin 3.7. Troponin 0.036. CRP was 13.78. Ferritin was 423. Urinalysis with 7 to 10 wbc's. COVID-19 PCR was positive. The chest x-ray demonstrated interstitial markings increased in both right and left side. Currently, Ms. Hoffmann is sitting in bed. She is feeling better. Sense of smell has returned. She has no headaches. Coughing intermittently, but not much. A little bit of sputum production. No chest pain. Mild dyspnea. No abdominal pain. Some loose stool. No joint symptoms other than her usual physical exam. PAST MEDICAL HISTORY: 1. Type 2 diabetes. 2. Hypertension. 3. Asthma. 4. Hyperlipidemia. SURGICAL HISTORY: 1. Ovarian benign tumor removal. 2. Cholecystectomy. 3. Laminectomy. 4. Tubal ligation. SOCIAL HISTORY: Lives at home. She has family members who have been diagnosed with COVID-19, one of them is admitted to [facility], the other one here in the hospital. Chews tobacco and smokes intermittently about a pack a day. Does not drink alcoholic beverages. ALLERGIES: LISINOPRIL. CURRENT MEDICATIONS: 1. Proventil HFA p.r.n. 2. Azithromycin. 3. Pepcid. 4. Flonase nasal. 5. Plaquenil. She is not on any antimicrobial therapy other than Plaquenil at this point. PHYSICAL EXAMINATION: VITAL SIGNS: T-max 103 yesterday and she is 99.8 at this time, BP 140/63, pulse 65, respirations 20, and O2 saturation 98 on 2 L nasal cannula, this has been pretty much what she has been. GENERAL: She is awake and alert, a little bit tachypneic, in mild distress. SKIN: Normal. There is no lymphadenopathy. Peripheral IV access. HEENT: Ocular movements conjugate. Oral cavity not remarkable. NECK: Supple. LUNGS: With no obvious crackles or wheezing. HEART: S1 and S2. Regular rate. No S3. ABDOMEN: Soft, not distended or tender. No ascites. No bladder distention. EXTREMITIES: No joint inflammatory activity. No edema. Pulses 1+ in dorsalis pedis. Plantar responses are flexor. NEUROLOGIC: Cognitive function appears to be normal. LABORATORY DATA: Latest white cell count 5.5, hemoglobin 11.7, and platelets 260. Creatinine 1.09 and then 1.27. CRP is up to 23.49. ASSESSMENT: 1. Type 2 diabetes. 2. Hypertension. 3. Hyperlipidemia. 4. Asthma. 5. COVID-19 infection with evidence of intrafamilial spread. DISCUSSION: The patient has risk factors for deterioration, so we will need to continue with observation in the unit with current management including Plaquenil and monitoring QTc and monitor inflammatory markers including CRP, D-dimer, lymphocyte count, and so on. Job ID: [id number]
[2019-10-27] MEDS: HumaLOG 300 UNITS/3 ML VIAL SC PRN (17:13)
[2019-10-27] MEDS: Azithromycin 500 MG in Sodium Chloride 0.9% 250 ML 250 ML IVPB SCH (18:10)
[2019-10-27] MEDS: Hydroxychloroquine Sulfate 200 MG TAB PO SCH (20:27)
[2019-10-27] MEDS ORDERED: Hydroxychloroquine Sulfate 200 MG TAB PO SCH (21:00)
--- NOTE | 2019-10-27 22:58 | PDOC.EVN ---
Event Note - Event Note Event Note: Patient with 1/2 positive blood cultures for Stept (preliminary). Has a positive Covid-19 test, and is being followed by Dr. Braswell. Discussed case with Dr. So, who is helping to cross cover tonight. Have added Rocephin IVBP tonight and day team can decide whether to continue or wait until BC is completely resulted.
[2019-10-27] MEDS ORDERED: cefTRIAXone\\ROCEPHIN 2 GM in Sodium Chloride 0.9% 100 ML IVPB SCH (23:00)
[2019-10-27] MEDS ORDERED: Albuterol 200 PUFF (6.7GM INHALER) INH PRN (23:25)
[2019-10-28] MEDS: Acetaminophen 325 MG TAB PO PRN ×2 (06:13→12:30)
[2019-10-28] MEDS ORDERED: Hydroxychloroquine Sulfate 200 MG TAB PO SCH (09:00)
[2019-10-28] MEDS: Famotidine 20 MG TAB PO SCH (09:49)
[2019-10-28] MEDS: Metoprolol Tartrate 50 MG TAB PO SCH ×2 (09:49→21:09)
[2019-10-28] MEDS: Hydroxychloroquine Sulfate 200 MG TAB PO SCH ×2 (09:49→21:09)
[2019-10-28] MEDS: Amlodipine 10 MG TAB PO SCH (09:49)
[2019-10-28] MEDS: Multivit, Therapeutic 1 TAB PO SCH (09:49)
[2019-10-28] MEDS: Fluticasone Propionate Nasal Spray 16 gm Bottle NASAL SCH (09:56)
--- NOTE | 2019-10-28 10:47 | PDOC.HOSPP ---
- Subjective Encounter Date: 10/28/19 Encounter Time: 10:30 Subjective: is moving in the room with her walker no sob or chest pain says she is eating well no new complaints - Objective Vital Signs & Weight: Vital Signs (12 hours) Temp Pulse Resp BP BP Pulse Ox 10/28/19 09:49 74 10/28/19 09:47 101.1 F H 74 20 145/64 H 94 L 10/28/19 05:00 102.5 F H 80 18 161/69 H 97 10/27/19 23:26 100.9 F H 62 20 130/62 100 Weight Admit Weight 166 lb 11.2 oz Weight 166 lb 11.2 oz I&O: 10/27/19 10/28/19 10/29/19 06:59 06:59 06:59 Intake Total 1350 2130 Output Total 775 500 Balance 575 1630 Result Diagrams: 10/27/19 12:51 10/27/19 12:51 Additional Labs: Accuchecks 10/28/19 10/27/19 10/27/19 06:12 20:19 17:07 POC Glucose 110 116 H 171 H Hospitalist ROS - Medication Medications: Active Medications Generic Name Dose Route Start Last Admin Trade Name Freq PRN Reason Stop Dose Admin Acetaminophen 650 mg 10/25/19 08:32 10/28/19 06:13 Tylenol PO 650 mg Q4H PRN Administration Headache/Fever/Mild Pain (1-3) Albuterol Sulfate 2 puff 10/27/19 23:25 10/27/19 23:41 Proventil Hfa INH 2 puff Q2H PRN Administration SOB &/or Wheezing Amlodipine Besylate 10 mg 10/27/19 09:00 10/28/19 09:49 Norvasc PO 10 mg DAILY CORNELIUS Administration Famotidine 20 mg 10/26/19 09:00 10/28/19 09:49 Pepcid PO 20 mg DAILY CORNELIUS Administration Fluticasone Propionate 0 gm 10/26/19 09:00 10/28/19 09:56 Flonase Nasal [place] NASAL Not Given DAILY CORNELIUS Hydralazine HCl 10 mg 10/25/19 13:52 10/26/19 15:31 Apresoline SLOW IVP 10 mg Q4H PRN Administration SBP Greater Than 180 Azithromycin 500 mg/ Sodium 250 mls @ 250 mls/hr 10/26/19 17:00 10/27/19 18: 10 Chloride IVPB 250 mls 1700 CORNELIUS Administration Insulin Human Lispro 0 units 10/27/19 13:36 10/27/19 17:13 Humalog SC 2 unit .MILD SLIDING SCALE PRN Administration Mild Correctional Scale Metoprolol Tartrate 50 mg 10/26/19 21:00 10/28/19 09:49 Lopressor PO 50 mg BID CORNELIUS Administration Multivitamins 1 tab 10/25/19 09:00 10/28/19 09:49 Theragran PO 1 tab DAILY CORNELIUS Administration Ondansetron HCl 4 mg 10/25/19 08:32 10/27/19 20:27 Zofran IVP 4 mg Q6H PRN Administration Nausea/Vomiting - Exam General Appearance: awake alert Eye: PERRL, anicteric sclera ENT: no oropharyngeal lesions, moist mucosa Neck: supple, no JVD Heart: RRR, no murmur Respiratory: no wheezes, no rales, rhonchi Gastrointestinal: soft, non-tender, non-distended, normal bowel sounds Extremities: no cyanosis, no edema Neurological: cranial nerve grossly intact, no focal deficits Psychiatric: A&O x 3 Hosp A/P (1) Pneumonia due to COVID-19 virus Code(s): U07.1 - COVID-19; J12.89 - OTHER VIRAL PNEUMONIA Status: Acute (2) Sepsis Code(s): A41.9 - SEPSIS, UNSPECIFIED ORGANISM Status: Acute Qualifiers: Sepsis acute organ dysfunction status: without acute organ dysfunction (3) COVID-19 Code(s): U07.1 - COVID-19 Status: Acute (4) NENO (acute kidney injury) Code(s): N17.9 - ACUTE KIDNEY FAILURE, UNSPECIFIED Status: Resolved (5) Obesity (BMI 30.0-34.9) Code(s): E66.9 - OBESITY, UNSPECIFIED Status: Chronic (6) DM type 2 (diabetes mellitus, type 2) Status: Chronic Qualifiers: Diabetes mellitus intermediate school teacher insulin use: without intermediate school teacher use (7) HTN (hypertension) Code(s): I10 - ESSENTIAL (PRIMARY) HYPERTENSION Status: Chronic Qualifiers: Hypertension type: essential hypertension Qualified Code(s): I10 - Essential (primary) hypertension (8) Dyslipidemia Code(s): E78.5 - HYPERLIPIDEMIA, UNSPECIFIED Status: Chronic (9) Chronic anemia Code(s): D64.9 - ANEMIA, UNSPECIFIED Status: Chronic (10) H/O extrinsic asthma Code(s): Z87.09 - PERSONAL HISTORY OF OTHER DISEASES OF THE RESPIRATORY SYSTEM Status: Chronic - Plan Has covid 19 pna with sepsis daughter was +ve for it and is currently in ICU at [facility], pt got exposed to her, her son is also in the hospital with fever on zithromax and hydroxychloroquine, alb inhaler, flonase nasal spray, norvasc, toprol xl tmax of around 101 degrees renal function is back to normal hemostable to ambulate in room as tolerated
[2019-10-28] MEDS: HumaLOG 300 UNITS/3 ML VIAL SC PRN (12:30)
[2019-10-28] MEDS: Azithromycin 500 MG in Sodium Chloride 0.9% 250 ML 250 ML IVPB SCH (21:08)
[2019-10-29] MEDS: Acetaminophen 325 MG TAB PO PRN ×2 (01:20→09:03)
[2019-10-29] MEDS: Hydroxychloroquine Sulfate 200 MG TAB PO SCH ×2 (09:03→21:54)
[2019-10-29] MEDS: Famotidine 20 MG TAB PO SCH (09:04)
[2019-10-29] MEDS: Metoprolol Tartrate 50 MG TAB PO SCH ×2 (09:04→21:54)
[2019-10-29] MEDS: Fluticasone Propionate Nasal Spray 16 gm Bottle NASAL SCH (09:04)
[2019-10-29] MEDS: Amlodipine 10 MG TAB PO SCH (09:04)
[2019-10-29] MEDS: Multivit, Therapeutic 1 TAB PO SCH (09:04)
--- NOTE | 2019-10-29 10:04 | RAD ---
PORTABLE CHEST: Date: 10/29/2019 HISTORY: Assess for infiltrate. COMPARISON: 10/27/2019. FINDINGS: There is evidence of bilateral patchy infiltrates seen today, most prominent in the lower lobes bilat erally. There is evidence of small bilateral effusions. Heart size upper normal and stable. Vascular markings within normal range. IMPRESSION: Scattered patchy bilateral infiltrates most prominent in the lower lobes with suggestion of small norma ateral effusions. POS: [facility]
--- NOTE | 2019-10-29 10:49 | PDOC.HOSPP ---
- Subjective Encounter Date: 10/29/19 Encounter Time: 08:45 Subjective: c/o increasing sob and mucoid sputum production is feeling weak today - Objective Vital Signs & Weight: Vital Signs (12 hours) Temp Pulse Resp BP Pulse Ox 10/29/19 09:00 101.4 F H 98 22 H 185/98 H 92 L 10/29/19 05:00 99.9 F H 72 18 152/70 H 94 L 10/29/19 01:43 102.5 F H 10/29/19 00:00 103.6 F H 71 20 171/73 H 95 Weight Admit Weight 166 lb 11.2 oz Weight 166 lb 11.2 oz I&O: 10/28/19 10/29/19 10/30/19 06:59 06:59 06:59 Intake Total 2130 1284 Output Total 500 1025 Balance 1630 259 Result Diagrams: 10/27/19 12:51 10/27/19 12:51 Additional Labs: Accuchecks 10/29/19 10/28/19 10/28/19 05:31 21:09 16:35 POC Glucose 117 H 172 H 114 H 10/28/19 12:33 POC Glucose 205 H Hospitalist ROS - Medication Medications: Active Medications Generic Name Dose Route Start Last Admin Trade Name Freq PRN Reason Stop Dose Admin Acetaminophen 650 mg 10/25/19 08:32 10/29/19 09:03 Tylenol PO 650 mg Q4H PRN Administration Headache/Fever/Mild Pain (1-3) Amlodipine Besylate 10 mg 10/27/19 09:00 10/29/19 09:04 Norvasc PO 10 mg DAILY CORNELIUS Administration Famotidine 20 mg 10/26/19 09:00 10/29/19 09:04 Pepcid PO 20 mg DAILY CORNELIUS Administration Fluticasone Propionate 0 gm 10/26/19 09:00 10/29/19 09:04 Flonase Nasal [place] NASAL Not Given DAILY CORNELIUS Hydralazine HCl 10 mg 10/25/19 13:52 10/26/19 15:31 Apresoline SLOW IVP 10 mg Q4H PRN Administration SBP Greater Than 180 Hydroxychloroquine Sulfate 200 mg 10/28/19 21:00 10/29/19 09:03 Plaquenil PO 11/02/19 09:01 200 mg BID CORNELIUS Administration Azithromycin 500 mg/ Sodium 250 mls @ 250 mls/hr 10/28/19 21:00 10/28/19 21: 08 Chloride IVPB 250 mls 2100 CORNELIUS Administration Insulin Human Lispro 0 units 10/27/19 13:36 10/28/19 12:30 Humalog SC 3 unit .MILD SLIDING SCALE PRN Administration Mild Correctional Scale Metoprolol Tartrate 50 mg 10/26/19 21:00 10/29/19 09:04 Lopressor PO 50 mg BID CORNELIUS Administration Multivitamins 1 tab 10/25/19 09:00 10/29/19 09:04 Theragran PO 1 tab DAILY CORNELIUS Administration Ondansetron HCl 4 mg 10/25/19 08:32 10/29/19 01:21 Zofran Odt PO 4 mg Q6H PRN Administration Nausea/Vomiting Ondansetron HCl 4 mg 10/25/19 08:32 10/27/19 20:27 Zofran IVP 4 mg Q6H PRN Administration Nausea/Vomiting - Exam General Appearance: awake alert Eye: PERRL, anicteric sclera ENT: no oropharyngeal lesions, moist mucosa Neck: supple, no JVD Heart: RRR, no murmur Respiratory: no wheezes, no rales, rhonchi Gastrointestinal: soft, non-tender, non-distended, normal bowel sounds Extremities: no cyanosis, no edema Neurological: cranial nerve grossly intact, no focal deficits Psychiatric: A&O x 3 Hosp A/P (1) Pneumonia due to COVID-19 virus Code(s): U07.1 - COVID-19; J12.89 - OTHER VIRAL PNEUMONIA Status: Acute (2) Sepsis Code(s): A41.9 - SEPSIS, UNSPECIFIED ORGANISM Status: Acute Qualifiers: Sepsis acute organ dysfunction status: without acute organ dysfunction (3) COVID-19 Code(s): U07.1 - COVID-19 Status: Acute (4) NENO (acute kidney injury) Code(s): N17.9 - ACUTE KIDNEY FAILURE, UNSPECIFIED Status: Resolved (5) Obesity (BMI 30.0-34.9) Code(s): E66.9 - OBESITY, UNSPECIFIED Status: Chronic (6) DM type 2 (diabetes mellitus, type 2) Status: Chronic Qualifiers: Diabetes mellitus termite control servicer insulin use: without termite control servicer use (7) HTN (hypertension) Code(s): I10 - ESSENTIAL (PRIMARY) HYPERTENSION Status: Chronic Qualifiers: Hypertension type: essential hypertension Qualified Code(s): I10 - Essential (primary) hypertension (8) Dyslipidemia Code(s): E78.5 - HYPERLIPIDEMIA, UNSPECIFIED Status: Chronic (9) Chronic anemia Code(s): D64.9 - ANEMIA, UNSPECIFIED Status: Chronic (10) H/O extrinsic asthma Code(s): Z87.09 - PERSONAL HISTORY OF OTHER DISEASES OF THE RESPIRATORY SYSTEM Status: Chronic - Plan Has covid 19 pna with sepsis daughter was +ve for it and is currently in ICU at [facility], pt got exposed to her, her son is also in the hospital with fever on zithromax and hydroxychloroquine, alb inhaler, flonase nasal spray, norvasc, toprol xl repeat cxr this am shows increasing infiltrates, pulm consultation, pt likely might deteriorate. is still ambulating in room with walker tmax of around 101 degrees renal function is back to normal hemostable to ambulate in room as tolerated
[2019-10-29] MEDS ORDERED: Cefepime 1 GM in Sodium Chloride 0.9% 100 ML IVPB ONE (11:30)
[2019-10-29] MEDS ORDERED: methylPREDNISolone Sod Succ 40 MG VIAL IVP ONE (11:30)
[2019-10-29] MEDS ORDERED: Enoxaparin Sodium 40 MG/0.4 ML SYRINGE SC ONE (11:30)
--- NOTE | 2019-10-29 12:15 | CON ---
DATE OF CONSULTATION: 10/29/2019 HISTORY OF PRESENT ILLNESS: She is a 68-year-old obese female who was admitted initially on the with symptoms of apparently diarrhea. A family member was positive for coronavirus. She also was positive. Initial chest x-ray was normal. Now, over the course of several days, she has had worsening bilateral pulmonary infiltrates. Today, the x-ray shows a left-sided pneumonia. She is coughing sputum, which is relatively clear. I discussed this case with the primary care physician who went to see in the room. She is a smoker. She is weak. Her initial sats were 92% on room air, on 2 L today is 92%. PAST MEDICAL HISTORY: Diabetes, hypertension, obesity, lipidemia, chronic anemia, asthma. PAST SURGICAL HISTORY: Back surgery, gallbladder, tubal, fibroids. ALLERGIES: CODEINE AND LISINOPRIL. HOME MEDICATIONS: 1. Voltaren. 2. Tramadol. 3. Metoprolol. 4. Amlodipine. 5. Metformin 1000 b.i.d. REVIEW OF SYSTEMS: Otherwise unremarkable. PHYSICAL EXAMINATION: VITAL SIGNS: Temperature is 101.4, 98, respiratory rate 22, saturation 90%, blood pressure 185/98. CHEST: Crackles bilaterally, no wheezing. CARDIAC: Normal S1 and S2. ABDOMEN: No masses. LABORATORY DATA AND DIAGNOSTIC STUDIES: Blood cultures growing Strep viridans, should be sensitive to the present antibiotic. X-ray shows worsening infiltrates. No recent labs being ordered, but her last white count was normal. Creatinine is 1.27. BNP not noted. H and H 11 and 35, white count [id number] with no left shift. ASSESSMENT: 1. Worsening bilateral infiltrates. 2. Coronavirus disease positive. 3. Morbid obesity. 4. Asthma. 5. Azotemia. PLAN: Zithromax, hydrochloroquine as per recommendation. I have added Maxipime, steroids. Continue aggressive neb treatments. BNP is ordered. We will follow. If her condition gets worse, she will be transferred to the ICU. This is a consultation note of 70 minutes, 50% direct patient care. Job ID: [id number]
[2019-10-29] MEDS: Albuterol 200 PUFF (6.7GM INHALER) INH SCH ×4 (12:42→21:54)
--- NOTE | 2019-10-29 16:09 | PRG ---
DATE OF SERVICE: 10/29/2019 SUBJECTIVE: The patient is feeling a little better, less myalgias, not coughing as much. No vomiting. Constipated. OBJECTIVE: VITAL SIGNS: Still having temperature elevation, last one was 103.6, earlier today she is now 99.4; blood pressure 140/66; pulse 64; respirations 18 to 20; O2 saturation 92% on 2 L. GENERAL: Awake, alert, oriented. HEENT: Eye movements are conjugate. Sclerae white. Conjunctivae normal. Oral cavity normal. LUNGS: With no crackles audible. No wheezing. HEART: S1 and S2. Regular rate. ABDOMEN: Soft without tenderness anymore. LABORATORY DATA: White cell count to 5.5, hemoglobin 11.7, platelets 260, and she has not had any inflammatory markers repeated yet. We will go ahead and repeat some inflammatory markers if they have not yet been ordered. ASSESSMENT AND DISCUSSION: Type 2 diabetes, hypertension, asthma, COVID-19 infection with evidence of intrafamilial spread, but at this point, the patient is kind of holding steady, not much better, not much worse. We will go ahead and repeat inflammatory markers. She is still on broad-spectrum coverage and has been given methylprednisolone, although again this is controversial to corticosteroids and in general have been felt to be a detrimental in this infection. Job ID: [id number]
[2019-10-29] MEDS ORDERED: Hydroxychloroquine Sulfate 200 MG TAB PO SCH (21:00)
[2019-10-29] MEDS: Cefepime 1 GM in Sodium Chloride 0.9% 100 ML IVPB SCH (21:32)
[2019-10-29] MEDS: Azithromycin 500 MG in Sodium Chloride 0.9% 250 ML 250 ML IVPB SCH (21:59)
[2019-10-30] MEDS: Albuterol 200 PUFF (6.7GM INHALER) INH SCH ×6 (03:01→23:02)
[2019-10-30 05:59] LABS: Hemoglobin 10.7 g/dL (12.0-16.0); Mean Corpuscular HGB CONC 32.3 g/dL (32.0-36.0); Mean Corpuscular Volume 89.7 fL (78.0-98.0); Mean Platelet Volume 7.4 fL (7.4-10.4); Platelet Count 376 thou/uL (130-400); RBC Distribution Width 13.1 % (11.5-14.5); Red Blood Cell (RBC) Count 3.69 mill/uL (4.20-5.40); White Blood Cell (WBC) Count 6.5 thou/uL (4.8-10.8)
[2019-10-30 06:20] LABS: Band 6 % (5-11); Lymphocytes 13 % (21-51); MDiff Complete? YES; Monocytes 3 % (0-10); Neutrophil 78 % (42-75)
[2019-10-30 08:20] LABS: ALT (SGPT) 11 U/L (8-55); AST (SGOT) 26 U/L (5-34); Albumin 3.5 g/dL (3.4-4.8); Alkaline Phosphatase 75 U/L (40-110); Anion Gap 17 mmol/L (10-20); BUN (Urea Nitrogen) 26 mg/dL (9.8-20.1); Bilirubin, Total 0.2 mg/dL (0.2-1.2); Calc. Creatinine Clearance 58 mL/min (70-130); Calcium 9.2 mg/dL (7.8-10.44); Carbon Dioxide 22 mmol/L (23-31); Chloride 104 mmol/L (98-107); Estimated GFR-MDRD 60; Globulin 3.8 g/dL (2.4-3.5); Glucose 166 mg/dL (80-115); Potassium 5.4 mmol/L (3.5-5.1); Protein, Total 7.3 g/dL (6.0-8.3); Sodium 138 mmol/L (136-145)
[2019-10-30] MEDS: Famotidine 20 MG TAB PO SCH (08:48)
[2019-10-30] MEDS: Fluticasone Propionate Nasal Spray 16 gm Bottle NASAL SCH (08:49)
[2019-10-30] MEDS: Hydroxychloroquine Sulfate 200 MG TAB PO SCH ×2 (08:49→22:34)
[2019-10-30] MEDS: Multivit, Therapeutic 1 TAB PO SCH (08:49)
[2019-10-30] MEDS: Metoprolol Tartrate 50 MG TAB PO SCH ×2 (08:49→22:34)
[2019-10-30] MEDS: Amlodipine 10 MG TAB PO SCH (08:49)
[2019-10-30] MEDS: Enoxaparin Sodium 40 MG/0.4 ML SYRINGE SC SCH (08:50)
[2019-10-30 09:35] LABS: Magnesium 1.6 mg/dL (1.6-2.6)
--- NOTE | 2019-10-30 09:48 | PRG ---
DATE OF SERVICE: 10/30/2019 SUBJECTIVE: This morning, she is still short of breath. OBJECTIVE: VITAL SIGNS: Temperature 98, pulse 82, blood pressure 158/70, O2 sats are % on 2 L, respirations 18. CHEST: crackles. CARDIAC: Normal S1 and S2. No gallops. ABDOMEN: Soft. LABORATORY DATA: White count 6000, H and H of 10 and 33, platelet count is normal. Lytes are normal. Potassium 5.4. C-reactive protein is still elevated at 29. ASSESSMENT: 1. Coronavirus positive. 2. Bronchopneumonia. 3. BMI 30. 4. Azotemia. 5. Obesity. PLAN: Continue present treatment. Continue low-dose steroids. Follow up x-ray in the morning. We will follow. Job ID: [id number]
[2019-10-30] MEDS: methylPREDNISolone Sod Succ 40 MG VIAL IVP SCH (11:23)
[2019-10-30] MEDS: Cefepime 1 GM in Sodium Chloride 0.9% 100 ML IVPB SCH (11:23)
[2019-10-30] MEDS: HumaLOG 300 UNITS/3 ML VIAL SC PRN ×2 (11:30→17:48)
[2019-10-30] MEDS: Senokot S 8.6-50 MG TAB PO PRN (11:30)
[2019-10-30] MEDS ORDERED: Magnesium 2 GM/50 ML 2 GM in Premix Bag 1 BAG IVPB SCH (12:45)
--- NOTE | 2019-10-30 15:25 | PDOC.HOSPP ---
- Subjective Encounter Date: 10/30/19 Encounter Time: 10:15 Subjective: no new symptoms still has cough and expectoration of blood tinged sputum says she is amb in room with her walker - Objective Vital Signs & Weight: Vital Signs (12 hours) Temp Pulse Resp BP BP Pulse Ox 10/30/19 11:19 97.6 F 61 20 137/63 96 10/30/19 08:49 82 158/70 H 10/30/19 08:38 98.3 F 82 20 158/70 H 93 L 10/30/19 08:35 93 L Weight Admit Weight 166 lb 11.2 oz Weight 168 lb 12.8 oz I&O: 10/29/19 10/30/19 10/31/19 06:59 06:59 06:59 Intake Total 1284 1990 320 Output Total 1025 1150 Balance 259 840 320 Result Diagrams: 10/30/19 05:22 10/30/19 07:50 Additional Labs: Accuchecks 10/30/19 10/30/19 10/29/19 11:40 05:23 21:51 POC Glucose 164 H 175 H 218 H 10/29/19 10/29/19 16:49 12:42 POC Glucose 190 H 147 H Hospitalist ROS - Medication Medications: Active Medications Generic Name Dose Route Start Last Admin Trade Name Freq PRN Reason Stop Dose Admin Acetaminophen 650 mg 10/25/19 08:32 10/29/19 09:03 Tylenol PO 650 mg Q4H PRN Administration Headache/Fever/Mild Pain (1-3) Albuterol Sulfate 2 puff 10/29/19 10:30 10/30/19 14:18 Proventil Hfa INH 2 puff [id number] CORNELIUS Administration Amlodipine Besylate 10 mg 10/27/19 09:00 10/30/19 08:49 Norvasc PO 10 mg DAILY CORNELIUS Administration Enoxaparin Sodium 40 mg 10/30/19 09:00 10/30/19 08:50 Lovenox SC 40 mg 0900 CORNELIUS Administration Famotidine 20 mg 10/26/19 09:00 10/30/19 08:48 Pepcid PO 20 mg DAILY CORNELIUS Administration Fluticasone Propionate 0 gm 10/26/19 09:00 10/30/19 08:49 Flonase Nasal [place] NASAL Not Given DAILY CORNELIUS Hydralazine HCl 10 mg 10/25/19 13:52 10/26/19 15:31 Apresoline SLOW IVP 10 mg Q4H PRN Administration SBP Greater Than 180 Hydroxychloroquine Sulfate 200 mg 10/28/19 21:00 10/30/19 08:49 Plaquenil PO 11/02/19 09:01 200 mg BID CORNELIUS Administration Azithromycin 500 mg/ Sodium 250 mls @ 250 mls/hr 10/28/19 21:00 10/29/19 21: 59 Chloride IVPB 250 mls 2100 CORNELIUS Administration Cefepime HCl 1 gm/ Sodium 100 mls @ 200 mls/hr 10/29/19 21:00 10/30/19 11:23 Chloride IVPB 100 mls Q12HR CORNELIUS Administration Insulin Human Lispro 0 units 10/27/19 13:36 10/30/19 11:30 Humalog SC 2 unit .MILD SLIDING SCALE PRN Administration Mild Correctional Scale Methylprednisolone Sodium Succinate 40 mg 10/30/19 09:00 10/30/19 11:23 Solu-Medrol IVP 40 mg DAILY CORNELIUS Administration Metoprolol Tartrate 50 mg 10/26/19 21:00 10/30/19 08:49 Lopressor PO 50 mg BID CORNELIUS Administration Multivitamins 1 tab 10/25/19 09:00 10/30/19 08:49 Theragran PO 1 tab DAILY CORNELIUS Administration Ondansetron HCl 4 mg 10/25/19 08:32 10/29/19 01:21 Zofran Odt PO 4 mg Q6H PRN Administration Nausea/Vomiting Ondansetron HCl 4 mg 10/25/19 08:32 10/27/19 20:27 Zofran IVP 4 mg Q6H PRN Administration Nausea/Vomiting Senna/Docusate Sodium 2 tab 10/25/19 08:32 10/30/19 11:30 Senokot S PO 2 tab BID PRN Administration Constipation - Exam General Appearance: awake alert Eye: PERRL, anicteric sclera ENT: no oropharyngeal lesions, moist mucosa Neck: supple, no JVD Heart: RRR, no murmur Respiratory: no wheezes, no rales, rhonchi Gastrointestinal: soft, non-tender, non-distended, normal bowel sounds Extremities: no cyanosis, no edema Neurological: cranial nerve grossly intact, no focal deficits Hosp A/P (1) Pneumonia due to COVID-19 virus Code(s): U07.1 - COVID-19; J12.89 - OTHER VIRAL PNEUMONIA Status: Acute (2) Sepsis Code(s): A41.9 - SEPSIS, UNSPECIFIED ORGANISM Status: Acute Qualifiers: Sepsis acute organ dysfunction status: without acute organ dysfunction (3) COVID-19 Code(s): U07.1 - COVID-19 Status: Acute (4) NENO (acute kidney injury) Code(s): N17.9 - ACUTE KIDNEY FAILURE, UNSPECIFIED Status: Resolved (5) Obesity (BMI 30.0-34.9) Code(s): E66.9 - OBESITY, UNSPECIFIED Status: Chronic (6) DM type 2 (diabetes mellitus, type 2) Status: Chronic Qualifiers: Diabetes mellitus correction insulin use: without correction use (7) HTN (hypertension) Code(s): I10 - ESSENTIAL (PRIMARY) HYPERTENSION Status: Chronic Qualifiers: Hypertension type: essential hypertension Qualified Code(s): I10 - Essential (primary) hypertension (8) Dyslipidemia Code(s): E78.5 - HYPERLIPIDEMIA, UNSPECIFIED Status: Chronic (9) Chronic anemia Code(s): D64.9 - ANEMIA, UNSPECIFIED Status: Chronic (10) H/O extrinsic asthma Code(s): Z87.09 - PERSONAL HISTORY OF OTHER DISEASES OF THE RESPIRATORY SYSTEM Status: Chronic - Plan Has covid 19 pna with sepsis daughter was +ve for it and is currently in ICU at [facility], pt got exposed to her, her son is also in the hospital with fever on zithromax and hydroxychloroquine, alb inhaler, flonase nasal spray, norvasc, toprol xl, steroids is ambulating in room with walker tmax of around 99 degrees renal function is back to normal hemostable to ambulate in room as tolerated, counselled to lay side ways and in prone position as much as possible if on bed
[2019-10-31] MEDS: Cefepime 1 GM in Sodium Chloride 0.9% 100 ML IVPB SCH ×3 (00:18→22:22)
[2019-10-31] MEDS: Azithromycin 500 MG in Sodium Chloride 0.9% 250 ML 250 ML IVPB SCH ×2 (00:54→21:13)
[2019-10-31] MEDS: Albuterol 200 PUFF (6.7GM INHALER) INH SCH ×6 (03:31→22:23)
[2019-10-31 05:36] LABS: #Lymphocytes 0.9 thou/uL (1.20-3.40); #Monocytes 0.5 thou/uL (0.11-0.59); #Neutrophils 7.8 thou/uL (1.40-6.50); %Basophils 0.3 % (0.0-1.0); %Eosinophils 0.3 % (0.0-10.0); %Lymphocytes 9.4 % (21.0-51.0); %Monocytes 4.9 % (0.0-10.0); %Neutrophils 85.1 % (42.0-75.0); Hemoglobin 10.3 g/dL (12.0-16.0); Mean Corpuscular HGB CONC 30.8 g/dL (32.0-36.0); Mean Corpuscular Hemoglobin 27.9 pg (27.0-31.0); Mean Corpuscular Volume 90.6 fL (78.0-98.0); Mean Platelet Volume 7.3 fL (7.4-10.4); Platelet Count 444 thou/uL (130-400); RBC Distribution Width 13.4 % (11.5-14.5); Red Blood Cell (RBC) Count 3.69 mill/uL (4.20-5.40); White Blood Cell (WBC) Count 9.2 thou/uL (4.8-10.8)
[2019-10-31] MEDS: HumaLOG 300 UNITS/3 ML VIAL SC PRN ×2 (05:55→16:43)
[2019-10-31 05:59] LABS: ALT (SGPT) 11 U/L (8-55); AST (SGOT) 23 U/L (5-34); Albumin 3.5 g/dL (3.4-4.8); Alkaline Phosphatase 70 U/L (40-110); Anion Gap 16 mmol/L (10-20); BUN (Urea Nitrogen) 28 mg/dL (9.8-20.1); Bilirubin, Total 0.3 mg/dL (0.2-1.2); CRP (Inflammatory) 14.58 mg/dL (= or < 0.5); Calc. Creatinine Clearance 59 mL/min (70-130); Calcium 9.4 mg/dL (7.8-10.44); Carbon Dioxide 24 mmol/L (23-31); Chloride 105 mmol/L (98-107); Estimated GFR-MDRD 61; Globulin 3.7 g/dL (2.4-3.5); Glucose 189 mg/dL (80-115); Potassium 5.5 mmol/L (3.5-5.1); Protein, Total 7.2 g/dL (6.0-8.3); Sodium 139 mmol/L (136-145)
--- NOTE | 2019-10-31 07:44 | RAD ---
Exam: Chest one view HISTORY:Evaluate for infiltrate. Pneumonia. Comparison: 10/29/2019 FINDINGS: Cardiac silhouette:Upper normal cardiac silhouette Aorta: Unremarkable Pulmonary vessels: Normal Costophrenic angles: Clear LUNGS: Persistent multifocal interstitial and alveolar opacities. Pneumothorax: None Osseous abnormalities: None IMPRESSION: Persistent multifocal interstitial and alveolar opacities.
[2019-10-31] MEDS: Multivit, Therapeutic 1 TAB PO SCH (09:23)
[2019-10-31] MEDS: Famotidine 20 MG TAB PO SCH (09:23)
[2019-10-31] MEDS: Amlodipine 10 MG TAB PO SCH (09:23)
[2019-10-31] MEDS: Enoxaparin Sodium 40 MG/0.4 ML SYRINGE SC SCH (09:23)
[2019-10-31] MEDS: Metoprolol Tartrate 50 MG TAB PO SCH ×2 (09:23→21:13)
[2019-10-31] MEDS: Hydroxychloroquine Sulfate 200 MG TAB PO SCH ×2 (09:23→21:13)
[2019-10-31] MEDS: methylPREDNISolone Sod Succ 40 MG VIAL IVP SCH (09:24)
--- NOTE | 2019-10-31 10:28 | PRG ---
DATE OF SERVICE: 10/31/2019 SUBJECTIVE: This morning, she says she is doing better. OBJECTIVE: VITAL SIGNS: Temperature 98, pulse 72, respirations _16, saturation 90% on room air, and blood pressure 171/71. CHEST: No wheezing or crackles. CARDIAC: Normal S1 and S2. No gallops. ABDOMEN: No masses. LABORATORY DATA: White count 9000. Lytes are normal. C-reactive protein is still elevated, but better. Chest x-ray taken this morning shows still pretty much bilateral infiltrates, left greater than right, but clearly no worse. ASSESSMENT: Coronavirus positive, pneumonia, respiratory failure. PLAN: If the patient is stable tomorrow, she can be discharged home on p.o. Zithromax and p.o. Plaquenil as per the protocol along with low-dose steroids for 5 days and Omnicef for about 5 days. Job ID: [id number] [id number]
[2019-10-31] MEDS: Fluticasone Propionate Nasal Spray 16 gm Bottle NASAL SCH (12:08)
--- NOTE | 2019-10-31 12:40 | PDOC.HOSPP ---
- Subjective Encounter Date: 10/31/19 Encounter Time: 09:30 Subjective: breathing better, is amb in room says her cough is better, has nasal congestion - Objective Vital Signs & Weight: Vital Signs (12 hours) Temp Pulse Resp BP BP Pulse Ox 10/31/19 11:39 97.6 F 58 L 22 H 149/65 H 95 10/31/19 09:23 72 10/31/19 08:08 98.0 F 72 22 H 171/71 H 93 L 10/31/19 03:26 97.6 F 68 17 177/72 H 100 Weight Admit Weight 166 lb 11.2 oz Weight 168 lb 11.2 oz I&O: 10/30/19 10/31/19 11/01/19 06:59 06:59 06:59 Intake Total 19892 Output Total 1150 1050 Balance 840 672 Result Diagrams: 10/31/19 05:28 10/31/19 05:28 Additional Labs: Accuchecks 10/31/19 10/31/19 10/30/19 09:38 05:31 22:31 POC Glucose 152 H 184 H 203 H 10/30/19 17:24 POC Glucose 186 H Hospitalist ROS - Medication Medications: Active Medications Generic Name Dose Route Start Last Admin Trade Name Freq PRN Reason Stop Dose Admin Acetaminophen 650 mg 10/25/19 08:32 10/29/19 09:03 Tylenol PO 650 mg Q4H PRN Administration Headache/Fever/Mild Pain (1-3) Albuterol Sulfate 2 puff 10/29/19 10:30 10/31/19 09:25 Proventil Hfa INH 2 puff [id number] CORNELIUS Administration Amlodipine Besylate 10 mg 10/27/19 09:00 10/31/19 09:23 Norvasc PO 10 mg DAILY CORNELIUS Administration Enoxaparin Sodium 40 mg 10/30/19 09:00 10/31/19 09:23 Lovenox SC 40 mg 0900 CORNELIUS Administration Famotidine 20 mg 10/26/19 09:00 10/31/19 09:23 Pepcid PO 20 mg DAILY CORNELIUS Administration Fluticasone Propionate 0 gm 10/26/19 09:00 10/31/19 12:08 Flonase Nasal [place] NASAL Not Given DAILY CORNELIUS Hydralazine HCl 10 mg 10/25/19 13:52 10/26/19 15:31 Apresoline SLOW IVP 10 mg Q4H PRN Administration SBP Greater Than 180 Hydroxychloroquine Sulfate 200 mg 10/28/19 21:00 10/31/19 09:23 Plaquenil PO 11/02/19 09:01 200 mg BID CORNELIUS Administration Azithromycin 500 mg/ Sodium 250 mls @ 250 mls/hr 10/28/19 21:00 10/31/19 00: 54 Chloride IVPB 250 mls 2100 CORNELIUS Administration Cefepime HCl 1 gm/ Sodium 100 mls @ 200 mls/hr 10/29/19 21:00 10/31/19 09:24 Chloride IVPB 100 mls Q12HR CORNELIUS Administration Insulin Human Lispro 0 units 10/27/19 13:36 10/31/19 05:55 Humalog SC 2 unit .MILD SLIDING SCALE PRN Administration Mild Correctional Scale Methylprednisolone Sodium Succinate 40 mg 10/30/19 09:00 10/31/19 09:24 Solu-Medrol IVP 40 mg DAILY CORNELIUS Administration Metoprolol Tartrate 50 mg 10/26/19 21:00 10/31/19 09:23 Lopressor PO 50 mg BID CORNELIUS Administration Multivitamins 1 tab 10/25/19 09:00 10/31/19 09:23 Theragran PO 1 tab DAILY CORNELIUS Administration Ondansetron HCl 4 mg 10/25/19 08:32 10/29/19 01:21 Zofran Odt PO 4 mg Q6H PRN Administration Nausea/Vomiting Ondansetron HCl 4 mg 10/25/19 08:32 10/27/19 20:27 Zofran IVP 4 mg Q6H PRN Administration Nausea/Vomiting Senna/Docusate Sodium 2 tab 10/25/19 08:32 10/30/19 11:30 Senokot S PO 2 tab BID PRN Administration Constipation - Exam General Appearance: awake alert Eye: PERRL, anicteric sclera ENT: no oropharyngeal lesions, moist mucosa Neck: supple, no JVD Heart: RRR, no murmur Respiratory: no wheezes, rhonchi Gastrointestinal: soft, non-tender, non-distended, normal bowel sounds Extremities: no cyanosis, no edema Neurological: cranial nerve grossly intact, no focal deficits Psychiatric: A&O x 3 Hosp A/P (1) Pneumonia due to COVID-19 virus Code(s): U07.1 - COVID-19; J12.89 - OTHER VIRAL PNEUMONIA Status: Acute (2) Sepsis Code(s): A41.9 - SEPSIS, UNSPECIFIED ORGANISM Status: Acute Qualifiers: Sepsis acute organ dysfunction status: without acute organ dysfunction (3) NENO (acute kidney injury) Code(s): N17.9 - ACUTE KIDNEY FAILURE, UNSPECIFIED Status: Resolved (4) Obesity (BMI 30.0-34.9) Code(s): E66.9 - OBESITY, UNSPECIFIED Status: Chronic (5) DM type 2 (diabetes mellitus, type 2) Status: Chronic Qualifiers: Diabetes mellitus prison insulin use: without prison use (6) HTN (hypertension) Code(s): I10 - ESSENTIAL (PRIMARY) HYPERTENSION Status: Chronic Qualifiers: Hypertension type: essential hypertension Qualified Code(s): I10 - Essential (primary) hypertension (7) Dyslipidemia Code(s): E78.5 - HYPERLIPIDEMIA, UNSPECIFIED Status: Chronic (8) Chronic anemia Code(s): D64.9 - ANEMIA, UNSPECIFIED Status: Chronic (9) H/O extrinsic asthma Code(s): Z87.09 - PERSONAL HISTORY OF OTHER DISEASES OF THE RESPIRATORY SYSTEM Status: Chronic - Plan Has covid 19 pna with sepsis daughter was +ve for it and is currently in ICU at [facility], pt got exposed to her, her son is also in the hospital with fever on zithromax and hydroxychloroquine, alb inhaler, flonase nasal spray, norvasc, toprol xl, steroids is ambulating in room with walker tmax of around 99 degrees renal function is back to normal hemostable to ambulate in room as tolerated, counselled to lay side ways and in prone position as much as possible if on bed likely dc plan in am if cleared by specialists
--- NOTE | 2019-10-31 16:35 | PRG ---
DATE OF SERVICE: 10/31/2019 Ms. Hoffmann is seen by the bedside. Keeps taking off her O2 supplementation cannula and O2 sats will drop to anywhere from 78 to 86. On O2 2 L she gets up to 90 to 93. She is able to speak in full sentences. No abdominal pain. No diarrhea. PHYSICAL EXAMINATION: VITAL SIGNS: She has been afebrile for the past 3 days approximately. She is breathing at about 22 times a minute, was at 17. It went up a little bit, but that is when she removes her oxygen. BP 140/60. GENERAL: Awake, alert, oriented. LUNGS: Symmetric. Clear breath sounds. HEART: S1-S2. ABDOMEN: Soft, not distended. LABORATORY DATA: White cell count is 9.2, hemoglobin 10.3, platelets 444 with 85% neutrophils and creatinine 1.07. Liver profile normal. CRP is 14.58, which is a little bit down from previous levels. She had 1 set of blood cultures positive, most likely contaminant, not a true pathogen. The chest x-ray repeated for today with persistent multifocal interstitial and alveolar opacities. Her BCRSS score is level one and she will continue with supplemental oxygen she is finishing her hydroxychloroquine schedule. Job ID: [id number] [facility]
[2019-11-01] MEDS: Albuterol 200 PUFF (6.7GM INHALER) INH SCH ×6 (03:04→22:39)
[2019-11-01] MEDS: hydrALAZINE 20 MG/ML VIAL SLOW IVP PRN (05:20)
[2019-11-01] MEDS: HumaLOG 300 UNITS/3 ML VIAL SC PRN ×2 (05:35→12:58)
[2019-11-01 05:54] LABS: ALT (SGPT) 10 U/L (8-55); AST (SGOT) 21 U/L (5-34); Albumin 3.5 g/dL (3.4-4.8); Alkaline Phosphatase 70 U/L (40-110); Anion Gap 16 mmol/L (10-20); BUN (Urea Nitrogen) 29 mg/dL (9.8-20.1); Bilirubin, Total 0.3 mg/dL (0.2-1.2); Calc. Creatinine Clearance 64 mL/min (70-130); Calcium 9.4 mg/dL (7.8-10.44); Carbon Dioxide 22 mmol/L (23-31); Chloride 105 mmol/L (98-107); Estimated GFR-MDRD 67; Globulin 3.5 g/dL (2.4-3.5); Glucose 176 mg/dL (80-115); Potassium 5.1 mmol/L (3.5-5.1); Sodium 138 mmol/L (136-145)
[2019-11-01 06:02] LABS: Band 2 % (5-11); Hemoglobin 10.1 g/dL (12.0-16.0); Hypochromia SLIGHT = 6-15 cells (100X) (0-5/hpf); Lymphocytes 5 % (21-51); MDiff Complete? YES; Mean Corpuscular HGB CONC 33.3 g/dL (32.0-36.0); Mean Corpuscular Hemoglobin 29.6 pg (27.0-31.0); Mean Corpuscular Volume 88.9 fL (78.0-98.0); Mean Platelet Volume 7.1 fL (7.4-10.4); Monocytes 5 % (0-10); Neutrophil 88 % (42-75); Platelet Count 422 thou/uL (130-400); Platelet Morphology Comment Appears Increased; RBC Distribution Width 13.2 % (11.5-14.5); Red Blood Cell (RBC) Count 3.41 mill/uL (4.20-5.40); White Blood Cell (WBC) Count 8.4 thou/uL (4.8-10.8)
[2019-11-01] MEDS: Metoprolol Tartrate 50 MG TAB PO SCH ×2 (08:37→21:22)
[2019-11-01] MEDS: Hydroxychloroquine Sulfate 200 MG TAB PO SCH (08:37)
[2019-11-01] MEDS: Famotidine 20 MG TAB PO SCH (08:37)
[2019-11-01] MEDS: Amlodipine 10 MG TAB PO SCH (08:37)
[2019-11-01] MEDS: Multivit, Therapeutic 1 TAB PO SCH (08:37)
[2019-11-01] MEDS: Enoxaparin Sodium 40 MG/0.4 ML SYRINGE SC SCH (08:38)
[2019-11-01] MEDS ORDERED: Cefdinir 300 MG CAP PO SCH (09:30)
--- NOTE | 2019-11-01 09:43 | PRG ---
DATE OF SERVICE: 11/01/2019 SUBJECTIVE: This morning, she is awake, alert, and responsive. OBJECTIVE: VITAL SIGNS: Temperature 98, pulse 79, respiratory rate 18 oxygen_ on room air have been running low but 92% 0n o2. CHEST: No wheezing or crackles. CARDIAC: Normal S1, S2. No gallops. ABDOMEN: Soft. LABORATORY DATA: Her CPR is decreasing 8.5. White count 8000, H and H 10 and 30, platelet count is normal. ASSESSMENT: Bilateral bronchopneumonia, respiratory failure, coronavirus positive. PLAN: If oxygen level remains adequate, she can be discharged home on Zithromax , hydroxychloroquine, prednisone for 5 days, Omnicef for 5 days. Job ID: [id number] [facility]
--- NOTE | 2019-11-01 10:27 | PDOC.HOSPP ---
- Subjective Encounter Date: 11/01/19 Encounter Time: 09:35 Subjective: awake, sob is better no chest pain or palp or fever slept well last night is laying to the right lat side on bed now - Objective Vital Signs & Weight: Vital Signs (12 hours) Temp Pulse Resp BP BP BP Pulse Ox 11/01/19 08:34 98.6 F 18 156/66 H 91 L 11/01/19 08:31 85 84 L 11/01/19 07:50 93 L 11/01/19 06:31 93 L 11/01/19 05:20 70 11/01/19 04:00 98.4 F 77 24 H 175/75 H 90 L 11/01/19 03:02 97.4 F L 70 24 H 189/77 H 93 L 11/01/19 00:00 97.6 F 60 20 151/67 H 93 L Weight Admit Weight 166 lb 11.2 oz Weight 168 lb 11.2 oz I&O: 10/31/19 11/01/19 11/02/19 06:59 06:59 06:59 Intake Total 1722 Output Total 1050 300 Balance 672 -300 Result Diagrams: 11/01/19 05:20 11/01/19 05:20 Additional Labs: Accuchecks 11/01/19 10/31/19 10/31/19 05:34 21:24 16:46 POC Glucose 193 H 232 H 230 H Hospitalist ROS - Medication Medications: Active Medications Generic Name Dose Route Start Last Admin Trade Name Freq PRN Reason Stop Dose Admin Acetaminophen 650 mg 10/25/19 08:32 10/29/19 09:03 Tylenol PO 650 mg Q4H PRN Administration Headache/Fever/Mild Pain (1-3) Albuterol Sulfate 2 puff 10/29/19 10:30 11/01/19 06:32 Proventil Hfa INH 2 puff [id number] CORNELIUS Administration Amlodipine Besylate 10 mg 10/27/19 09:00 11/01/19 08:37 Norvasc PO 10 mg DAILY CORNELIUS Administration Enoxaparin Sodium 40 mg 10/30/19 09:00 11/01/19 08:38 Lovenox SC 40 mg 0900 CORNELIUS Administration Famotidine 20 mg 10/26/19 09:00 11/01/19 08:37 Pepcid PO 20 mg DAILY CORNELIUS Administration Fluticasone Propionate 0 gm 10/26/19 09:00 10/31/19 12:08 Flonase Nasal [place] NASAL Not Given DAILY CORNELIUS Hydralazine HCl 10 mg 10/25/19 13:52 11/01/19 05:20 Apresoline SLOW IVP 10 mg Q4H PRN Administration SBP Greater Than 180 Hydroxychloroquine Sulfate 200 mg 10/28/19 21:00 11/01/19 08:37 Plaquenil PO 11/02/19 09:01 200 mg BID CORNELIUS Administration Azithromycin 500 mg/ Sodium 250 mls @ 250 mls/hr 10/28/19 21:00 10/31/19 21: 13 Chloride IVPB 250 mls 2100 CORNELIUS Administration Insulin Human Lispro 0 units 10/27/19 13:36 11/01/19 05:35 Humalog SC 2 unit .MILD SLIDING SCALE PRN Administration Mild Correctional Scale Metoprolol Tartrate 50 mg 10/26/19 21:00 11/01/19 08:37 Lopressor PO 50 mg BID CORNELIUS Administration Multivitamins 1 tab 10/25/19 09:00 11/01/19 08:37 Theragran PO 1 tab DAILY CORNELIUS Administration Ondansetron HCl 4 mg 10/25/19 08:32 10/29/19 01:21 Zofran Odt PO 4 mg Q6H PRN Administration Nausea/Vomiting Ondansetron HCl 4 mg 10/25/19 08:32 10/27/19 20:27 Zofran IVP 4 mg Q6H PRN Administration Nausea/Vomiting Senna/Docusate Sodium 2 tab 10/25/19 08:32 10/30/19 11:30 Senokot S PO 2 tab BID PRN Administration Constipation - Exam General Appearance: awake alert Eye: PERRL, anicteric sclera ENT: no oropharyngeal lesions, moist mucosa Neck: supple, no JVD Heart: RRR, no murmur Respiratory: no wheezes, no rales, rhonchi Gastrointestinal: soft, non-tender, non-distended, normal bowel sounds Extremities: no cyanosis, no edema Neurological: cranial nerve grossly intact, no focal deficits Psychiatric: normal affect, A&O x 3 Hosp A/P (1) Pneumonia due to COVID-19 virus Code(s): U07.1 - COVID-19; J12.89 - OTHER VIRAL PNEUMONIA Status: Acute (2) Sepsis Code(s): A41.9 - SEPSIS, UNSPECIFIED ORGANISM Status: Acute Qualifiers: Sepsis acute organ dysfunction status: without acute organ dysfunction (3) NENO (acute kidney injury) Code(s): N17.9 - ACUTE KIDNEY FAILURE, UNSPECIFIED Status: Resolved (4) Obesity (BMI 30.0-34.9) Code(s): E66.9 - OBESITY, UNSPECIFIED Status: Chronic (5) DM type 2 (diabetes mellitus, type 2) Status: Chronic Qualifiers: Diabetes mellitus medical terminologist insulin use: without assisted use (6) HTN (hypertension) Code(s): I10 - ESSENTIAL (PRIMARY) HYPERTENSION Status: Chronic Qualifiers: Hypertension type: essential hypertension Qualified Code(s): I10 - Essential (primary) hypertension (7) Dyslipidemia Code(s): E78.5 - HYPERLIPIDEMIA, UNSPECIFIED Status: Chronic (8) Chronic anemia Code(s): D64.9 - ANEMIA, UNSPECIFIED Status: Chronic (9) H/O extrinsic asthma Code(s): Z87.09 - PERSONAL HISTORY OF OTHER DISEASES OF THE RESPIRATORY SYSTEM Status: Chronic - Plan Has covid 19 pna with sepsis daughter was +ve for it and is currently in ICU at [facility], pt got exposed to her, her son is also in the hospital with fever on zithromax and hydroxychloroquine, omnicef alb inhaler, flonase nasal spray, norvasc, toprol xl, steroids is ambulating in room with walker renal function is back to normal hemostable to ambulate in room as tolerated, counselled to lay side ways and in prone position as much as possible if on bed is at high risk for complications, is on nasal canula oxygen and saturating well
[2019-11-01] MEDS: Cefepime 1 GM in Sodium Chloride 0.9% 100 ML IVPB SCH (10:54)
[2019-11-01] MEDS: methylPREDNISolone Sod Succ 40 MG VIAL IVP SCH ×2 (10:55→11:05)
[2019-11-01] MEDS: Fluticasone Propionate Nasal Spray 16 gm Bottle NASAL SCH (11:17)
[2019-11-01] MEDS: Cefdinir 300 MG CAP PO SCH (21:22)
[2019-11-01] MEDS: Azithromycin 500 MG in Sodium Chloride 0.9% 250 ML 250 ML IVPB SCH (21:22)
[2019-11-02] MEDS: Albuterol 200 PUFF (6.7GM INHALER) INH SCH ×6 (02:44→21:45)
[2019-11-02] MEDS: hydrALAZINE 20 MG/ML VIAL SLOW IVP PRN (02:50)
[2019-11-02] MEDS: HumaLOG 300 UNITS/3 ML VIAL SC PRN ×2 (06:09→16:36)
[2019-11-02] MEDS: Amlodipine 10 MG TAB PO SCH (09:23)
[2019-11-02] MEDS: Cefdinir 300 MG CAP PO SCH ×2 (09:23→21:23)
[2019-11-02] MEDS: predniSONE 20 MG TAB PO SCH (09:23)
[2019-11-02] MEDS: Metoprolol Tartrate 50 MG TAB PO SCH ×2 (09:24→21:23)
[2019-11-02] MEDS: Fluticasone Propionate Nasal Spray 16 gm Bottle NASAL SCH (09:24)
[2019-11-02] MEDS: Famotidine 20 MG TAB PO SCH (09:24)
[2019-11-02] MEDS: Enoxaparin Sodium 40 MG/0.4 ML SYRINGE SC SCH (09:24)
[2019-11-02] MEDS: Multivit, Therapeutic 1 TAB PO SCH (09:24)
--- NOTE | 2019-11-02 10:29 | PDOC.HOSPP ---
- Subjective Encounter Date: 11/02/19 Encounter Time: 09:45 Subjective: awake, responds well to verbal questions is eating and sleeping well no sob, has upper airway congestion with mucoid drainage - Objective Vital Signs & Weight: Vital Signs (12 hours) Temp Pulse Resp BP BP BP BP 11/02/19 09:21 99.3 F 92 20 185/79 H 11/02/19 07:26 11/02/19 06:00 99.9 F H 80 20 177/70 H 11/02/19 02:50 64 184/76 H 11/02/19 02:43 184/76 H 11/02/19 02:38 98.1 F 64 20 184/78 H 11/01/19 22:41 97.8 F 63 20 Pulse Ox 11/02/19 09:21 92 L 11/02/19 07:26 93 L 11/02/19 06:00 93 L 11/02/19 02:50 11/02/19 02:43 11/02/19 02:38 95 11/01/19 22:41 100 Weight Admit Weight 166 lb 11.2 oz Weight 168 lb 11.2 oz I&O: 11/01/19 11/02/19 11/03/19 06:59 06:59 06:59 Output Total 300 1500 Balance -300 -1500 Result Diagrams: 11/01/19 05:20 11/01/19 05:20 Additional Labs: Accuchecks 11/02/19 11/01/19 11/01/19 06:11 21:19 18:47 POC Glucose 174 H 218 H 222 H Hospitalist ROS - Medication Medications: Active Medications Generic Name Dose Route Start Last Admin Trade Name Jamaq PRN Reason Stop Dose Admin Acetaminophen 650 mg 10/25/19 08:32 10/29/19 09:03 Tylenol PO 650 mg Q4H PRN Administration Headache/Fever/Mild Pain (1-3) Albuterol Sulfate 2 puff 10/29/19 10:30 11/02/19 09:24 Proventil Hfa INH 2 puff [id number] CORNELIUS Administration Amlodipine Besylate 10 mg 10/27/19 09:00 11/02/19 09:23 Norvasc PO 10 mg DAILY CORNELIUS Administration Cefdinir 300 mg 11/01/19 21:00 11/02/19 09:23 Omnicef PO 11/06/19 09:01 300 mg BID CORNELIUS Administration Enoxaparin Sodium 40 mg 10/30/19 09:00 11/02/19 09:24 Lovenox SC 40 mg 0900 [facility] Administration Famotidine 20 mg 10/26/19 09:00 11/02/19 09:24 Pepcid PO 20 mg DAILY CORNELIUS Administration Fluticasone Propionate 0 gm 10/26/19 09:00 11/02/19 09:24 Flonase Nasal [place] NASAL Not Given DAILY [facility] Hydralazine HCl 10 mg 10/25/19 13:52 11/02/19 02:50 Apresoline SLOW IVP 10 mg Q4H PRN Administration SBP Greater Than 180 Azithromycin 500 mg/ Sodium 250 mls @ 250 mls/hr 10/28/19 21:00 11/01/19 21: 22 Chloride IVPB 250 mls 2100 [facility] Administration Insulin Human Lispro 0 units 10/27/19 13:36 11/02/19 06:09 Humalog SC 2 unit .MILD SLIDING SCALE PRN Administration Mild Correctional Scale Metoprolol Tartrate 50 mg 10/26/19 21:00 11/02/19 09:24 Lopressor PO 50 mg BID [facility] Administration Multivitamins 1 tab 10/25/19 09:00 11/02/19 09:24 Theragran PO 1 tab DAILY [facility] Administration Ondansetron HCl 4 mg 10/25/19 08:32 10/29/19 01:21 Zofran Odt PO 4 mg Q6H PRN Administration Nausea/Vomiting Ondansetron HCl 4 mg 10/25/19 08:32 10/27/19 20:27 Zofran IVP 4 mg Q6H PRN Administration Nausea/Vomiting Prednisone 20 mg 11/02/19 08:00 11/02/19 09:23 Prednisone PO 11/07/19 08:01 20 mg QAM-WM [facility] Administration Senna/Docusate Sodium 2 tab 10/25/19 08:32 10/30/19 11:30 Senokot S PO 2 tab BID PRN Administration Constipation - Exam General Appearance: awake alert Eye: PERRL, anicteric sclera ENT: no oropharyngeal lesions, dry oral mucosa Neck: supple, no JVD Heart: RRR, no murmur Respiratory: no wheezes, no rales, rhonchi Gastrointestinal: soft, non-tender, non-distended, normal bowel sounds Extremities: no cyanosis, no edema Neurological: cranial nerve grossly intact, no focal deficits Psychiatric: A&O x 3 Hosp A/P (1) Pneumonia due to COVID-19 virus Code(s): U07.1 - COVID-19; J12.89 - OTHER VIRAL PNEUMONIA Status: Acute (2) Sepsis Code(s): A41.9 - SEPSIS, UNSPECIFIED ORGANISM Status: Acute Qualifiers: Sepsis acute organ dysfunction status: without acute organ dysfunction (3) NENO (acute kidney injury) Code(s): N17.9 - ACUTE KIDNEY FAILURE, UNSPECIFIED Status: Resolved (4) Obesity (BMI 30.0-34.9) Code(s): E66.9 - OBESITY, UNSPECIFIED Status: Chronic (5) DM type 2 (diabetes mellitus, type 2) Status: Chronic Qualifiers: Diabetes mellitus rigging up man insulin use: without rigging up man use (6) HTN (hypertension) Code(s): I10 - ESSENTIAL (PRIMARY) HYPERTENSION Status: Chronic Qualifiers: Hypertension type: essential hypertension Qualified Code(s): I10 - Essential (primary) hypertension (7) Dyslipidemia Code(s): E78.5 - HYPERLIPIDEMIA, UNSPECIFIED Status: Chronic (8) Chronic anemia Code(s): D64.9 - ANEMIA, UNSPECIFIED Status: Chronic (9) H/O extrinsic asthma Code(s): Z87.09 - PERSONAL HISTORY OF OTHER DISEASES OF THE RESPIRATORY SYSTEM Status: Chronic - Plan Has covid 19 pna with sepsis daughter was +ve for it and is currently in ICU at [facility] in [place], pt got exposed to her, her son is also in the hospital with fever on zithromax, off hydroxychloroquine, on omnicef alb inhaler, flonase nasal spray, norvasc, toprol xl, steroids is ambulating in room with walker renal function is back to normal hemostable to ambulate in room as tolerated, counselled to lay side ways and in prone position as much as possible if on bed is at high risk for complications, is on nasal canula oxygen and saturating well , off Oxygen saturating around 90% at rest. frequent oral hygeine, tongue is coated
--- NOTE | 2019-11-02 12:32 | PRG ---
DATE OF SERVICE: 11/02/2019 SUBJECTIVE: Ms. Hoffmann is in good spirits. She remains in COVID pneumonia isolation. OBJECTIVE: VITAL SIGNS: She is currently on 3 L nasal cannula with O2 saturation of 92%. Her fever trend demonstrates she has only been as high as 99.9 degrees Fahrenheit over the last 24 hours. HEENT: Unremarkable. LUNGS: Clear anteriorly. CARDIOVASCULAR: Regular. ABDOMEN: Soft. EXTREMITIES: No edema. ASSESSMENT AND PLAN: The patient appears to be slowly improving from her COVID-19 pneumonia. Her peak ferritin was on the and she was headed downward yesterday. It was not checked today. My recommendation would be to continue to wean her oxygen as tolerated and discharge her once it seems appropriate, otherwise. Dr. Higuera will recheck her on Monday. Job ID: [id number]
[2019-11-02 13:28] LABS: #Monocytes 0.7 thou/uL (0.11-0.59); #Neutrophils 6.4 thou/uL (1.40-6.50); %Basophils 0.3 % (0.0-1.0); %Eosinophils 0.3 % (0.0-10.0); %Lymphocytes 12.7 % (21.0-51.0); %Monocytes 8.4 % (0.0-10.0); %Neutrophils 78.4 % (42.0-75.0); Hemoglobin 11.5 g/dL (12.0-16.0); Mean Corpuscular HGB CONC 31.6 g/dL (32.0-36.0); Mean Corpuscular Hemoglobin 28.5 pg (27.0-31.0); Mean Platelet Volume 7.3 fL (7.4-10.4); Platelet Count 512 thou/uL (130-400); RBC Distribution Width 13.3 % (11.5-14.5); Red Blood Cell (RBC) Count 4.03 mill/uL (4.20-5.40); White Blood Cell (WBC) Count 8.2 thou/uL (4.8-10.8)
[2019-11-02 13:47] LABS: ALT (SGPT) 15 U/L (8-55); AST (SGOT) 26 U/L (5-34); Albumin 3.8 g/dL (3.4-4.8); Alkaline Phosphatase 76 U/L (40-110); Anion Gap 16 mmol/L (10-20); BUN (Urea Nitrogen) 26 mg/dL (9.8-20.1); Bilirubin, Total 0.4 mg/dL (0.2-1.2); Calc. Creatinine Clearance 63 mL/min (70-130); Calcium 9.7 mg/dL (7.8-10.44); Carbon Dioxide 27 mmol/L (23-31); Chloride 101 mmol/L (98-107); Estimated GFR-MDRD 66; Globulin 3.8 g/dL (2.4-3.5); Glucose 192 mg/dL (80-115); Protein, Total 7.6 g/dL (6.0-8.3); Sodium 139 mmol/L (136-145)
--- NOTE | 2019-11-02 16:15 | PRG ---
DATE OF SERVICE: 11/02/2019 SUBJECTIVE: Ms. Hoffmann is awake and alert, a little bit of upper airway congestion, some mucus drainage. Denies dyspnea or chest pain. No diarrhea. No abdominal pain. No dyspnea. OBJECTIVE: VITAL SIGNS: T-max 99.9, BP 150/60, pulse 67, O2 saturations are at 93% with 3 L supplementation. LUNGS: Symmetric air entry. No crackles or wheezing. HEART: S1, S2 regular rate. ABDOMEN: Soft. Not distended. EXTREMITIES: Moves extremities equally. No edema. LABORATORY DATA: White cell count 8.2, hemoglobin 11.5, platelets 512. Total lymphocytes are 1.0 and the ferritin is down to 487. ASSESSMENT AND DISCUSSION: COVID-19 pneumonia. BCRSS score is still zero and continue conservative management. Looks like inflammatory markers are steadily improving. Hopefully, will be able to discharge in the next few days. Upon discharge planning, it will be important to have some sort of way of the patient communicating with provider, followup to prevent readmission because of the long-lasting nature of symptoms after discharge. Job ID: [id number]
[2019-11-02] MEDS: Azithromycin 500 MG in Sodium Chloride 0.9% 250 ML 250 ML IVPB SCH (21:23)
[2019-11-03] MEDS: Albuterol 200 PUFF (6.7GM INHALER) INH SCH ×7 (02:17→22:56)
[2019-11-03] MEDS: Multivit, Therapeutic 1 TAB PO SCH (07:46)
[2019-11-03] MEDS: Amlodipine 10 MG TAB PO SCH (07:47)
[2019-11-03] MEDS: predniSONE 20 MG TAB PO SCH (07:47)
[2019-11-03] MEDS: Cefdinir 300 MG CAP PO SCH ×2 (07:47→22:33)
[2019-11-03] MEDS: Famotidine 20 MG TAB PO SCH (07:47)
[2019-11-03] MEDS: Metoprolol Tartrate 50 MG TAB PO SCH ×2 (07:47→22:33)
[2019-11-03] MEDS: Fluticasone Propionate Nasal Spray 16 gm Bottle NASAL SCH (07:48)
[2019-11-03] MEDS: Enoxaparin Sodium 40 MG/0.4 ML SYRINGE SC SCH (07:48)
--- NOTE | 2019-11-03 10:47 | PDOC.HOSPP ---
- Subjective Encounter Date: 11/03/19 Encounter Time: 08:15 Subjective: awake, no sob says she is brushing and keeping her mouth clean atleast twice daily now, encouraged to do it 3x/day - Objective Vital Signs & Weight: Vital Signs (12 hours) Temp Pulse Resp BP BP BP Pulse Ox 11/03/19 08:00 97.6 F 76 20 157/91 H 96 11/03/19 07:47 61 11/03/19 06:09 98.5 F 61 20 180/80 H 94 L 11/03/19 02:23 97.6 F 67 20 158/68 H 97 11/02/19 22:53 98.3 F 62 20 147/85 H 94 L Weight Admit Weight 166 lb 11.2 oz Weight 168 lb 11.2 oz I&O: 11/02/19 11/03/19 11/04/19 06:59 06:59 06:59 Intake Total 1210 Output Total 1500 1150 Balance -1500 60 Result Diagrams: 11/02/19 13:08 11/02/19 13:08 Additional Labs: Accuchecks 11/03/19 11/02/19 11/02/19 06:08 21:42 16:37 POC Glucose 123 H 156 H 216 H 11/02/19 13:07 POC Glucose 189 H Hospitalist ROS - Medication Medications: Active Medications Generic Name Dose Route Start Last Admin Trade Name Freq PRN Reason Stop Dose Admin Acetaminophen 650 mg 10/25/19 08:32 10/29/19 09:03 Tylenol PO 650 mg Q4H PRN Administration Headache/Fever/Mild Pain (1-3) Albuterol Sulfate 2 puff 10/29/19 10:30 11/03/19 06:06 Proventil Hfa INH 2 puff [id number] CORNELIUS Administration Amlodipine Besylate 10 mg 10/27/19 09:00 11/03/19 07:47 Norvasc PO 10 mg DAILY CORNELIUS Administration Cefdinir 300 mg 11/01/19 21:00 11/03/19 07:47 Omnicef PO 11/06/19 09:01 300 mg BID CORNELIUS Administration Enoxaparin Sodium 40 mg 10/30/19 09:00 11/03/19 07:48 Lovenox SC 40 mg 0900 CORNELIUS Administration Famotidine 20 mg 10/26/19 09:00 11/03/19 07:47 Pepcid PO 20 mg DAILY CORNELIUS Administration Fluticasone Propionate 0 gm 10/26/19 09:00 11/03/19 07:48 Flonase Nasal [place] NASAL Not Given DAILY CORNELIUS Hydralazine HCl 10 mg 10/25/19 13:52 11/02/19 02:50 Apresoline SLOW IVP 10 mg Q4H PRN Administration SBP Greater Than 180 Azithromycin 500 mg/ Sodium 250 mls @ 250 mls/hr 10/28/19 21:00 11/02/19 21: 23 Chloride IVPB 250 mls 2100 CORNELIUS Administration Insulin Human Lispro 0 units 10/27/19 13:36 11/02/19 16:36 Humalog SC 3 unit .MILD SLIDING SCALE PRN Administration Mild Correctional Scale Metoprolol Tartrate 50 mg 10/26/19 21:00 11/03/19 07:47 Lopressor PO 50 mg BID CORNELIUS Administration Multivitamins 1 tab 10/25/19 09:00 11/03/19 07:46 Theragran PO 1 tab DAILY CORN[facility]IUS Administration Ondansetron HCl 4 mg 10/25/19 08:32 10/29/19 01:21 Zofran Odt PO 4 mg Q6H PRN Administration Nausea/Vomiting Ondansetron HCl 4 mg 10/25/19 08:32 10/27/19 20:27 Zofran IVP 4 mg Q6H PRN Administration Nausea/Vomiting Prednisone 20 mg 11/02/19 08:00 11/03/19 07:47 Prednisone PO 11/07/19 08:01 20 mg QAM-WM CORNELIUS Administration Senna/Docusate Sodium 2 tab 10/25/19 08:32 10/30/19 11:30 Senokot S PO 2 tab BID PRN Administration Constipation - Exam General Appearance: awake alert Eye: PERRL, anicteric sclera ENT: no oropharyngeal lesions, dry oral mucosa Neck: supple, no JVD Heart: RRR, no murmur Respiratory: no wheezes, no rales Gastrointestinal: soft, non-tender, non-distended, normal bowel sounds Extremities: no cyanosis, no edema Neurological: cranial nerve grossly intact, no focal deficits Psychiatric: normal affect, A&O x 3 Hosp A/P (1) Pneumonia due to COVID-19 virus Code(s): U07.1 - COVID-19; J12.89 - OTHER VIRAL PNEUMONIA Status: Acute (2) Sepsis Code(s): A41.9 - SEPSIS, UNSPECIFIED ORGANISM Status: Acute Qualifiers: Sepsis acute organ dysfunction status: without acute organ dysfunction (3) NENO (acute kidney injury) Code(s): N17.9 - ACUTE KIDNEY FAILURE, UNSPECIFIED Status: Resolved (4) Obesity (BMI 30.0-34.9) Code(s): E66.9 - OBESITY, UNSPECIFIED Status: Chronic (5) DM type 2 (diabetes mellitus, type 2) Status: Chronic Qualifiers: Diabetes mellitus retirement insulin use: without terminal press operator use (6) HTN (hypertension) Code(s): I10 - ESSENTIAL (PRIMARY) HYPERTENSION Status: Chronic Qualifiers: Hypertension type: essential hypertension Qualified Code(s): I10 - Essential (primary) hypertension (7) Dyslipidemia Code(s): E78.5 - HYPERLIPIDEMIA, UNSPECIFIED Status: Chronic (8) Chronic anemia Code(s): D64.9 - ANEMIA, UNSPECIFIED Status: Chronic (9) H/O extrinsic asthma Code(s): Z87.09 - PERSONAL HISTORY OF OTHER DISEASES OF THE RESPIRATORY SYSTEM Status: Chronic - Plan Has covid 19 pna with sepsis daughter was +ve for it and is currently in ICU at [facility] in [place], pt got exposed to her, her son is also in the hospital with fever on zithromax, off hydroxychloroquine, on omnicef alb inhaler, flonase nasal spray, norvasc, toprol xl, steroids is ambulating in room with walker renal function is back to normal hemostable to ambulate in room as tolerated, counselled to lay side ways and in prone position as much as possible if on bed is on nasal canula oxygen and saturating well, off Oxygen saturating around 90% at rest. frequent oral hygeine, tongue is coated ?candidiasis, will add nystatin swish and swallow likely dc plan in am with her son who is hospitalized with covid and in bed 248 (they live together at home and will help each other) will need closed f/u with PCP and .
[2019-11-03 11:25] LABS: Hemoglobin 11.7 g/dL (12.0-16.0); Mean Corpuscular HGB CONC 33.2 g/dL (32.0-36.0); Mean Corpuscular Hemoglobin 29.4 pg (27.0-31.0); Mean Corpuscular Volume 88.6 fL (78.0-98.0); RBC Distribution Width 13.3 % (11.5-14.5); Red Blood Cell (RBC) Count 3.99 mill/uL (4.20-5.40)
[2019-11-03 11:41] LABS: ALT (SGPT) 17 U/L (8-55); AST (SGOT) 26 U/L (5-34); Albumin 3.6 g/dL (3.4-4.8); Alkaline Phosphatase 70 U/L (40-110); Anion Gap 17 mmol/L (10-20); BUN (Urea Nitrogen) 27 mg/dL (9.8-20.1); Bilirubin, Total 0.4 mg/dL (0.2-1.2); Calc. Creatinine Clearance 62 mL/min (70-130); Calcium 9.4 mg/dL (7.8-10.44); Carbon Dioxide 25 mmol/L (23-31); Chloride 101 mmol/L (98-107); Estimated GFR-MDRD 65; Globulin 3.6 g/dL (2.4-3.5); Glucose 234 mg/dL (80-115); Potassium 4.9 mmol/L (3.5-5.1); Protein, Total 7.2 g/dL (6.0-8.3); Sodium 138 mmol/L (136-145)
[2019-11-03 11:46] LABS: #Basophils 0.1 thou/uL (0.0-0.2); #Lymphocytes 0.9 thou/uL (1.20-3.40); #Monocytes 0.5 thou/uL (0.11-0.59); #Neutrophils 6.6 thou/uL (1.40-6.50); %Basophils 0.8 % (0.0-1.0); %Eosinophils 0.1 % (0.0-10.0); %Lymphocytes 11.5 % (21.0-51.0); %Monocytes 5.7 % (0.0-10.0); %Neutrophils 81.9 % (42.0-75.0); Mean Platelet Volume 8.3 fL (7.4-10.4); Platelet Count 538 thou/uL (130-400); Platelet Morphology Comment Appears Increased
--- NOTE | 2019-11-03 12:06 | PRG ---
DATE OF SERVICE: 11/03/2019 SUBJECTIVE: The patient is doing well. She is in good spirits. She is talking on the phone. OBJECTIVE: VITAL SIGNS: Her O2 sat is 96% on 2 L, temperature 97.6, and blood pressure . HEENT: Unremarkable. NECK: No adenopathy or JVD. CHEST: Clear. CARDIAC: S1 and S2, regular. ABDOMEN: Soft. EXTREMITIES: No edema. ASSESSMENT: COVID-19 pneumonia. PLAN: Should be able to discharge home soon. May temporarily need oxygen. No new recommendations. Job ID: [id number]
[2019-11-03] MEDS: HumaLOG 300 UNITS/3 ML VIAL SC PRN ×2 (12:18→18:26)
[2019-11-03] MEDS: Senokot S 8.6-50 MG TAB PO PRN (16:20)
[2019-11-03] MEDS: Azithromycin 500 MG in Sodium Chloride 0.9% 250 ML 250 ML IVPB SCH (22:33)
[2019-11-04] MEDS: Azithromycin 500 MG in Sodium Chloride 0.9% 250 ML 250 ML IVPB SCH (01:20)
[2019-11-04] MEDS: Albuterol 200 PUFF (6.7GM INHALER) INH SCH ×6 (02:36→22:11)
[2019-11-04 07:20] LABS: #Basophils 0.1 thou/uL (0.0-0.2); #Monocytes 0.4 thou/uL (0.11-0.59); #Neutrophils 3.7 thou/uL (1.40-6.50); %Basophils 1.2 % (0.0-1.0); %Eosinophils 0.4 % (0.0-10.0); %Lymphocytes 19.1 % (21.0-51.0); %Monocytes 8.2 % (0.0-10.0); %Neutrophils 71.1 % (42.0-75.0); Hemoglobin 13.2 g/dL (12.0-16.0); Mean Corpuscular HGB CONC 30.8 g/dL (32.0-36.0); Mean Corpuscular Hemoglobin 27.8 pg (27.0-31.0); Mean Corpuscular Volume 90.3 fL (78.0-98.0); Platelet Count 424 thou/uL (130-400); RBC Distribution Width 13.1 % (11.5-14.5); Red Blood Cell (RBC) Count 4.74 mill/uL (4.20-5.40); White Blood Cell (WBC) Count 5.2 thou/uL (4.8-10.8)
[2019-11-04 07:25] LABS: ALT (SGPT) 16 U/L (8-55); AST (SGOT) 22 U/L (5-34); Albumin 3.5 g/dL (3.4-4.8); Alkaline Phosphatase 68 U/L (40-110); Anion Gap 11 mmol/L (10-20); BUN (Urea Nitrogen) 28 mg/dL (9.8-20.1); Bilirubin, Total 0.3 mg/dL (0.2-1.2); Calc. Creatinine Clearance 65 mL/min (70-130); Calcium 9.4 mg/dL (7.8-10.44); Carbon Dioxide 32 mmol/L (23-31); Chloride 101 mmol/L (98-107); Estimated GFR-MDRD 68; Globulin 3.5 g/dL (2.4-3.5); Glucose 129 mg/dL (80-115); Potassium 4.4 mmol/L (3.5-5.1); Sodium 140 mmol/L (136-145)
[2019-11-04] MEDS: Cefdinir 300 MG CAP PO SCH ×2 (08:03→22:10)
[2019-11-04] MEDS: predniSONE 20 MG TAB PO SCH (08:03)
[2019-11-04] MEDS: Enoxaparin Sodium 40 MG/0.4 ML SYRINGE SC SCH (08:03)
[2019-11-04] MEDS: Amlodipine 10 MG TAB PO SCH (08:03)
[2019-11-04] MEDS: Metoprolol Tartrate 50 MG TAB PO SCH ×2 (08:04→22:10)
[2019-11-04] MEDS: Multivit, Therapeutic 1 TAB PO SCH (08:04)
[2019-11-04] MEDS: Famotidine 20 MG TAB PO SCH (08:04)
--- NOTE | 2019-11-04 09:56 | PRG ---
DATE OF SERVICE: 11/04/2019 SUBJECTIVE: This morning, she is somewhat better, her saturations are better. OBJECTIVE: VITAL SIGNS: Saturations are 94% on half a L. she is afebrile. Temperature 98, pulse 69, blood pressure 150/66. CHEST: No wheezing or crackles. CARDIAC: Normal S1, S2. ABDOMEN: No masses. LABORATORY DATA: White count is normal. Lytes are normal. C-reactive protein is down to 2.13. ASSESSMENT AND PLAN: Coronavirus positive bronchopneumonia, respiratory failure, improved. She can go home probably on her low-dose antibiotics prescribed. As per the protocol, she has already had enough Zithromax for a total of 10 days. She may well require low-flow O2. I have told the nurses to turn the O2 on room air to see whether she would maintain a sat above 88%. Job ID: [id number]
[2019-11-04] MEDS: Fluticasone Propionate Nasal Spray 16 gm Bottle NASAL SCH (10:04)
--- NOTE | 2019-11-04 12:16 | PDOC.HOSPP ---
- Subjective Encounter Date: 11/04/19 Encounter Time: 12:13 Subjective: Doing well. on O2 oxygen, admitted for Covid Pneumonia DC home soon. If required on home Oxygen - Objective Vital Signs & Weight: Vital Signs (12 hours) Temp Pulse Resp BP BP Pulse Ox 11/04/19 10:09 92 L 11/04/19 10:00 87 L 11/04/19 08:45 83 L 11/04/19 08:03 69 11/04/19 08:00 98.6 F 69 18 151/66 H 94 L 11/04/19 02:37 98.0 F 60 16 133/63 96 Weight Admit Weight 166 lb 11.2 oz Weight 168 lb 11.2 oz I&O: 11/03/19 11/04/19 11/05/19 06:59 06:59 06:59 Intake Total 1210 1060 Output Total 1150 950 Balance 60 110 Result Diagrams: 11/04/19 06:40 11/04/19 06:40 Additional Labs: Accuchecks 11/04/19 11/03/19 11/03/19 06:57 23:08 18:38 POC Glucose 125 H 156 H 203 H Hospitalist ROS - Medication Medications: Active Medications Generic Name Dose Route Start Last Admin Trade Name Freq PRN Reason Stop Dose Admin Acetaminophen 650 mg 10/25/19 08:32 10/29/19 09:03 Tylenol PO 650 mg Q4H PRN Administration Headache/Fever/Mild Pain (1-3) Albuterol Sulfate 2 puff 10/29/19 10:30 11/04/19 06:57 Proventil Hfa INH 2 puff [id number] CORNELIUS Administration Amlodipine Besylate 10 mg 10/27/19 09:00 11/04/19 08:03 Norvasc PO 10 mg DAILY CORNELIUS Administration Cefdinir 300 mg 11/01/19 21:00 11/04/19 08:03 Omnicef PO 11/06/19 09:01 300 mg BID CORNELIUS Administration Enoxaparin Sodium 40 mg 10/30/19 09:00 11/04/19 08:03 Lovenox SC 40 mg 0900 CORNELIUS Administration Famotidine 20 mg 10/26/19 09:00 11/04/19 08:04 Pepcid PO 20 mg DAILY CORNELIUS Administration Fluticasone Propionate 0 gm 10/26/19 09:00 11/04/19 10:04 Flonase Nasal [place] NASAL Not Given DAILY CORNELIUS Hydralazine HCl 10 mg 10/25/19 13:52 11/02/19 02:50 Apresoline SLOW IVP 10 mg Q4H PRN Administration SBP Greater Than 180 Azithromycin 500 mg/ Sodium 250 mls @ 250 mls/hr 10/28/19 21:00 11/04/19 01: 20 Chloride IVPB 250 mls 2100 CORNELIUS Administration Insulin Human Lispro 0 units 10/27/19 13:36 11/03/19 18:26 Humalog SC 3 unit .MILD SLIDING SCALE PRN Administration Mild Correctional Scale Metoprolol Tartrate 50 mg 10/26/19 21:00 11/04/19 08:04 Lopressor PO 50 mg BID CORNELIUS Administration Multivitamins 1 tab 10/25/19 09:00 11/04/19 08:04 Theragran PO 1 tab DAILY CORNELIUS Administration Ondansetron HCl 4 mg 10/25/19 08:32 10/29/19 01:21 Zofran Odt PO 4 mg Q6H PRN Administration Nausea/Vomiting Ondansetron HCl 4 mg 10/25/19 08:32 10/27/19 20:27 Zofran IVP 4 mg Q6H PRN Administration Nausea/Vomiting Prednisone 20 mg 11/02/19 08:00 11/04/19 08:03 Prednisone PO 11/07/19 08:01 20 mg QAM-WM CORNELIUS Administration Senna/Docusate Sodium 2 tab 10/25/19 08:32 11/03/19 16:20 Senokot S PO 2 tab BID PRN Administration Constipation Sodium Chloride 10 ml 10/25/19 08:32 11/04/19 02:40 Flush - Normal Saline IVF 10 ml PRN PRN Administration Saline Flush Hosp A/P (1) Pneumonia due to COVID-19 virus Code(s): U07.1 - COVID-19; J12.89 - OTHER VIRAL PNEUMONIA Status: Acute (2) Chronic anemia Code(s): D64.9 - ANEMIA, UNSPECIFIED Status: Chronic (3) DM type 2 (diabetes mellitus, type 2) Status: Chronic Qualifiers: Diabetes mellitus fpc insulin use: without terminal gauger supervisor use (4) Dyslipidemia Code(s): E78.5 - HYPERLIPIDEMIA, UNSPECIFIED Status: Chronic (5) HTN (hypertension) Code(s): I10 - ESSENTIAL (PRIMARY) HYPERTENSION Status: Chronic Qualifiers: Hypertension type: essential hypertension Qualified Code(s): I10 - Essential (primary) hypertension (6) Obesity (BMI 30.0-34.9) Code(s): E66.9 - OBESITY, UNSPECIFIED Status: Chronic - Plan Admitted for Covid Pneumonia Doing better, continue NC oxygen and Azithromycin Continue home meds for HTN, HLD Continue insulin
--- NOTE | 2019-11-04 14:54 | PRG ---
DATE OF SERVICE: 11/04/2019 SUBJECTIVE: Kashif sitting in bed. She is all dressed up as if she is ready to go home. She is feeling better. No dyspnea. No more coughing. No abdominal pain or diarrhea. OBJECTIVE: VITAL SIGNS: T-max is 98. She is saturating at 88 on room air and with 1 L, she goes up to 92. BP 130/60. GENERAL: Does not appear in distress. She is breathing 20 times a minute. LUNGS: Sound clear. HEART: S1 and S2. Regular rate. ABDOMEN: Soft, not distended. LABORATORY DATA: The white cell count 5.2, hemoglobin 13.2, platelets 424, and 71% neutrophils. Last C-reactive protein was down to 2.13. Ferritin was down to 403 and D-dimer was not repeated. ASSESSMENT AND DISCUSSION: COVID-19 pneumonia, the patient's score is level 1, which is a little bit worse than the last time, but this just based on the pulse ox on room air, so she is about the same as she has been doing before because she had been on supplementation last time around, not able to go home unless her son is also discharged and I do not think he is ready for prime time. Job ID: [id number]
[2019-11-04] MEDS: HumaLOG 300 UNITS/3 ML VIAL SC PRN (18:05)
[2019-11-05] MEDS: Albuterol 200 PUFF (6.7GM INHALER) INH SCH ×6 (02:51→22:14)
[2019-11-05 05:26] LABS: #Basophils 0.1 thou/uL (0.0-0.2); #Eosinphils 0.1 thou/uL (0.0-0.7); #Lymphocytes 1.4 thou/uL (1.20-3.40); #Monocytes 0.5 thou/uL (0.11-0.59); #Neutrophils 5.1 thou/uL (1.40-6.50); %Basophils 0.7 % (0.0-1.0); %Eosinophils 0.8 % (0.0-10.0); %Lymphocytes 19.1 % (21.0-51.0); %Monocytes 7.6 % (0.0-10.0); %Neutrophils 71.7 % (42.0-75.0); Hemoglobin 10.1 g/dL (12.0-16.0); Mean Corpuscular HGB CONC 32.5 g/dL (32.0-36.0); Mean Corpuscular Hemoglobin 29.3 pg (27.0-31.0); Mean Corpuscular Volume 90.2 fL (78.0-98.0); Mean Platelet Volume 6.9 fL (7.4-10.4); Platelet Count 508 thou/uL (130-400); RBC Distribution Width 13.1 % (11.5-14.5); Red Blood Cell (RBC) Count 3.44 mill/uL (4.20-5.40); White Blood Cell (WBC) Count 7.1 thou/uL (4.8-10.8)
[2019-11-05 05:44] LABS: ALT (SGPT) 17 U/L (8-55); AST (SGOT) 20 U/L (5-34); Albumin 3.3 g/dL (3.4-4.8); Alkaline Phosphatase 62 U/L (40-110); Anion Gap 14 mmol/L (10-20); BUN (Urea Nitrogen) 37 mg/dL (9.8-20.1); Bilirubin, Total 0.3 mg/dL (0.2-1.2); Calc. Creatinine Clearance 51 mL/min (70-130); Calcium 8.9 mg/dL (7.8-10.44); Carbon Dioxide 28 mmol/L (23-31); Chloride 102 mmol/L (98-107); Estimated GFR-MDRD 52; Globulin 3.2 g/dL (2.4-3.5); Glucose 101 mg/dL (80-115); Potassium 4.7 mmol/L (3.5-5.1); Protein, Total 6.5 g/dL (6.0-8.3); Sodium 139 mmol/L (136-145)
[2019-11-05] MEDS: Senokot S 8.6-50 MG TAB PO PRN (06:40)
[2019-11-05] MEDS: Enoxaparin Sodium 40 MG/0.4 ML SYRINGE SC SCH (09:12)
[2019-11-05] MEDS: Multivit, Therapeutic 1 TAB PO SCH (09:13)
[2019-11-05] MEDS: Famotidine 20 MG TAB PO SCH (09:13)
[2019-11-05] MEDS: Metoprolol Tartrate 50 MG TAB PO SCH ×2 (09:13→21:41)
[2019-11-05] MEDS: Cefdinir 300 MG CAP PO SCH ×2 (09:13→21:41)
[2019-11-05] MEDS: Amlodipine 10 MG TAB PO SCH (09:13)
[2019-11-05] MEDS: predniSONE 20 MG TAB PO SCH (09:13)
[2019-11-05] MEDS: Fluticasone Propionate Nasal Spray 16 gm Bottle NASAL SCH (10:13)
--- NOTE | 2019-11-05 11:54 | PRG ---
DATE OF SERVICE: 11/05/2019 SUBJECTIVE: This morning, she is doing better. OBJECTIVE: VITAL SIGNS: Saturations were apparently on room air, , and blood pressure 130/80. CHEST: No wheezing or crackles. CARDIAC: Normal S1 and S2. No gallops. ABDOMEN: No masses. IMPRESSION: Respiratory failure, coronavirus positive pneumonia, day 11 in the hospital. PLAN: We will plan to discharge home. Follow up with the primary care physician. She may require low-flow O2 if she desaturates. See in the office once the quarantine is over. Job ID: [id number]
--- NOTE | 2019-11-05 15:21 | PDOC.HOSPP ---
- Subjective Encounter Date: 11/05/19 Encounter Time: 15:19 Subjective: no complains - Objective Vital Signs & Weight: Vital Signs (12 hours) Temp Pulse Resp BP BP BP Pulse Ox 11/05/19 11:42 98.5 F 68 20 148/65 H 92 L 11/05/19 09:06 99.1 F 80 18 130/92 H 91 L 11/05/19 03:21 98.7 F 65 18 153/70 H 98 Weight Admit Weight 166 lb 11.2 oz Weight 168 lb 11.2 oz I&O: 11/04/19 11/05/19 11/06/19 06:59 06:59 06:59 Intake Total 1060 880 Output Total 950 1100 Balance 110 -220 Result Diagrams: 11/05/19 05:03 11/05/19 05:03 Additional Labs: Accuchecks 11/05/19 11/04/19 11/04/19 05:58 22:02 16:26 POC Glucose 108 114 H 223 H Hospitalist ROS - Review of Systems Other: doing well, no complains - Medication Medications: Active Medications Generic Name Dose Route Start Last Admin Trade Name Freq PRN Reason Stop Dose Admin Acetaminophen 650 mg 10/25/19 08:32 10/29/19 09:03 Tylenol PO 650 mg Q4H PRN Administration Headache/Fever/Mild Pain (1-3) Albuterol Sulfate 2 puff 10/29/19 10:30 11/05/19 11:56 Proventil Hfa INH 2 puff [id number] CORNELIUS Administration Amlodipine Besylate 10 mg 10/27/19 09:00 11/05/19 09:13 Norvasc PO 10 mg DAILY CORNELIUS Administration Cefdinir 300 mg 11/01/19 21:00 11/05/19 09:13 Omnicef PO 11/06/19 09:01 300 mg BID CORNELIUS Administration Enoxaparin Sodium 40 mg 10/30/19 09:00 11/05/19 09:12 Lovenox SC 40 mg 0900 CORNELIUS Administration Famotidine 20 mg 10/26/19 09:00 11/05/19 09:13 Pepcid PO 20 mg DAILY CORNELIUS Administration Fluticasone Propionate 0 gm 10/26/19 09:00 11/05/19 10:13 Flonase Nasal [place] NASAL Not Given DAILY CORNELIUS Hydralazine HCl 10 mg 10/25/19 13:52 11/02/19 02:50 Apresoline SLOW IVP 10 mg Q4H PRN Administration SBP Greater Than 180 Insulin Human Lispro 0 units 10/27/19 13:36 11/04/19 18:05 Humalog SC 3 unit .MILD SLIDING SCALE PRN Administration Mild Correctional Scale Metoprolol Tartrate 50 mg 10/26/19 21:00 11/05/19 09:13 Lopressor PO 50 mg BID CORNELIUS Administration Multivitamins 1 tab 10/25/19 09:00 11/05/19 09:13 Theragran PO 1 tab DAILY CORNELIUS Administration Ondansetron HCl 4 mg 10/25/19 08:32 10/29/19 01:21 Zofran Odt PO 4 mg Q6H PRN Administration Nausea/Vomiting Ondansetron HCl 4 mg 10/25/19 08:32 10/27/19 20:27 Zofran IVP 4 mg Q6H PRN Administration Nausea/Vomiting Prednisone 20 mg 11/02/19 08:00 11/05/19 09:13 Prednisone PO 11/07/19 08:01 20 mg QAM-WM CORNELIUS Administration Senna/Docusate Sodium 2 tab 10/25/19 08:32 11/05/19 06:40 Senokot S PO 2 tab BID PRN Administration Constipation Sodium Chloride 10 ml 10/25/19 08:32 11/04/19 02:40 Flush - Normal Saline IVF 10 ml PRN PRN Administration Saline Flush - Exam General Appearance: awake alert Eye: PERRL, anicteric sclera ENT: normocephalic atraumatic, no oropharyngeal lesions Neck: supple, symmetric, no thyromegaly Heart: RRR, no murmur, no gallops, no rubs, normal peripheral pulses Respiratory: CTAB, no wheezes, no rales, no ronchi, normal chest expansion Gastrointestinal: soft, non-tender, non-distended, normal bowel sounds Extremities: no cyanosis, no clubbing, no edema Skin: normal turgor, no lesions, no rashes Neurological: cranial nerve grossly intact Psychiatric: normal affect, normal behavior Hosp A/P (1) Pneumonia due to COVID-19 virus Code(s): U07.1 - COVID-19; J12.89 - OTHER VIRAL PNEUMONIA Status: Acute (2) Chronic anemia Code(s): D64.9 - ANEMIA, UNSPECIFIED Status: Chronic (3) DM type 2 (diabetes mellitus, type 2) Status: Chronic Qualifiers: Diabetes mellitus longterm insulin use: without watermelon harvesting supervisor use (4) Dyslipidemia Code(s): E78.5 - HYPERLIPIDEMIA, UNSPECIFIED Status: Chronic (5) HTN (hypertension) Code(s): I10 - ESSENTIAL (PRIMARY) HYPERTENSION Status: Chronic Qualifiers: Hypertension type: essential hypertension Qualified Code(s): I10 - Essential (primary) hypertension (6) Obesity (BMI 30.0-34.9) Code(s): E66.9 - OBESITY, UNSPECIFIED Status: Chronic - Plan Admitted for Covid Pneumonia Doing better, DC NC oxygen and Azithromycin Continue home meds for HTN, HLD Continue insulin Hold DC until her son can be discharged as she has no one to take care of her and she is Covid positive
[2019-11-05] MEDS: HumaLOG 300 UNITS/3 ML VIAL SC PRN (18:04)
[2019-11-06] MEDS: Albuterol 200 PUFF (6.7GM INHALER) INH SCH ×4 (03:32→14:28)
[2019-11-06 04:57] LABS: Hemoglobin 9.8 g/dL (12.0-16.0); Mean Corpuscular Volume 90.7 fL (78.0-98.0); Red Blood Cell (RBC) Count 3.54 mill/uL (4.20-5.40); White Blood Cell (WBC) Count 7.5 thou/uL (4.8-10.8)
[2019-11-06 04:58] LABS: #Basophils 0.2 thou/uL (0.0-0.2); #Eosinphils 0.1 thou/uL (0.0-0.7); #Lymphocytes 1.5 thou/uL (1.20-3.40); #Monocytes 0.7 thou/uL (0.11-0.59); %Basophils 2.2 % (0.0-1.0); %Eosinophils 0.7 % (0.0-10.0); %Lymphocytes 20.2 % (21.0-51.0); %Monocytes 9.1 % (0.0-10.0); %Neutrophils 67.7 % (42.0-75.0); Mean Corpuscular HGB CONC 30.5 g/dL (32.0-36.0); Mean Corpuscular Hemoglobin 27.7 pg (27.0-31.0); Mean Platelet Volume 9.1 fL (7.4-10.4); Platelet Count 360 thou/uL (130-400); RBC Distribution Width 13.1 % (11.5-14.5)
[2019-11-06 05:08] LABS: ALT (SGPT) 15 U/L (8-55); AST (SGOT) 20 U/L (5-34); Albumin 3.4 g/dL (3.4-4.8); Alkaline Phosphatase 63 U/L (40-110); Anion Gap 15 mmol/L (10-20); BUN (Urea Nitrogen) 40 mg/dL (9.8-20.1); Bilirubin, Total 0.4 mg/dL (0.2-1.2); Calc. Creatinine Clearance 53 mL/min (70-130); Calcium 8.9 mg/dL (7.8-10.44); Carbon Dioxide 27 mmol/L (23-31); Chloride 101 mmol/L (98-107); Estimated GFR-MDRD 54; Globulin 3.3 g/dL (2.4-3.5); Glucose 123 mg/dL (80-115); Potassium 4.5 mmol/L (3.5-5.1); Protein, Total 6.7 g/dL (6.0-8.3); Sodium 138 mmol/L (136-145)
[2019-11-06 06:26] VITALS: BMI 30.7
[2019-11-06] MEDS: Famotidine 20 MG TAB PO SCH (09:43)
[2019-11-06] MEDS: predniSONE 20 MG TAB PO SCH (09:43)
[2019-11-06] MEDS: Metoprolol Tartrate 50 MG TAB PO SCH (09:43)
[2019-11-06] MEDS: Multivit, Therapeutic 1 TAB PO SCH (09:44)
[2019-11-06] MEDS: Enoxaparin Sodium 40 MG/0.4 ML SYRINGE SC SCH (09:44)
[2019-11-06] MEDS: Amlodipine 10 MG TAB PO SCH (09:44)
[2019-11-06] MEDS: Fluticasone Propionate Nasal Spray 16 gm Bottle NASAL SCH (11:24)
[2019-11-06] MEDS: Cefdinir 300 MG CAP PO SCH (11:24)
--- NOTE | 2019-11-06 11:40 | PRG ---
DATE OF SERVICE: 11/06/2019 SUBJECTIVE: This morning, she is much improved. X-ray shows marked resolution of her bilateral pulmonary infiltrates. She still has some left-sided basal atelectatic changes, but clearly much improved. OBJECTIVE: VITAL SIGNS: Temperature 98, pulse 72, saturations are much improved 97%, respiratory rate 18, blood pressure 164/71. CHEST: No wheezing or crackles. CARDIAC: Normal S1, S2. No gallops. ABDOMEN: No masses. LABORATORY DATA: Creatinine 1.2, BUN is 40. Otherwise, labs unremarkable. C-reactive protein down to 1.73. Coronavirus positive. ASSESSMENT AND PLAN: 1. Pneumonia, much improved. 2. Respiratory failure, much improved. Disposition; home any time. She has already had adequate treatment for the coronavirus, which have included Zithromax and Plaquenil as per the protocol. I will finish her prednisone and Omnicef as prescribed. Job ID: [id number]
[2019-11-06 11:48] VITALS: BP 134/63; TEMP 98.1
--- NOTE | 2019-11-06 12:03 | RAD ---
CHEST 1 VIEW: Date: 11/06/2019 HISTORY: [place] infection follow-up. COMPARISON: 10/31/2019. FINDINGS: Minimal persistent ground-glass opacity and linear stranding changes bilaterally, but showing improve ment when compared to the prior study, particularly the mid and lateral aspect of the left chest and both lower lung zones. No significant new process. IMPRESSION: Overall improvement in the patchy bilateral alveolar and ground-glass opacity changes from the prior exam. No significant new process. POS: [facility]
[2019-11-06] MEDS ORDERED: Milk Of Magnesia 30 ML UDCUP PO PRN (13:03)
[2019-11-06] MEDS: HumaLOG 300 UNITS/3 ML VIAL SC PRN (13:19)
--- NOTE | 2019-11-06 17:48 | DIS ---
DATE OF ADMISSION: 10/26/2019 DATE OF DISCHARGE: 11/06/2019 ADMISSION DIAGNOSES: 1. Acute viral syndrome, rule out COVID-19. 2. Acute kidney injury over chronic kidney disease 3. 3. Abnormal liver function tests. 4. Elevated troponin. 5. Hyponatremia. 6. Hypertension. 7. Diabetes. 8. Hyperlipidemia. 9. Obesity. 10. Tobacco dependence. 11. Chronic anemia. DISCHARGE DIAGNOSES: 1. Coronavirus disease pneumonia. 2. Acute kidney injury over chronic kidney disease 3. 3. Abnormal liver function tests. 4. Elevated troponin. 5. Hyponatremia. 6. Hypertension. 7. Diabetes. 8. Hyperlipidemia. 9. Obesity. 10. Tobacco dependence. 11. Chronic anemia. HISTORY OF PRESENTING ILLNESS: This is a 68-year-old female with diabetes mellitus, hypertension, hyperlipidemia, who was brought into the emergency room with generalized weakness. In the emergency room, the temperature was 99.1 with respiratory rate of 18, pulse of 91, blood pressure of 170/70 with O2 sats 92% on room air and Covid Positive. The patient was kept in airborne and droplet isolation and was treated with azithromycin and Plaquenil and abx empirically for gram- negative bacteria pneumonia. The patient subsequently did well and was then discharged home. DISCHARGE INSTRUCTIONS: 1. Follow up with your primary care physician. 2. Social isolation for 2 weeks. 3. Activity as tolerated. 4. Heart healthy diet. Job ID: [id number] MTDD
--- NOTE | 2019-11-08 10:48 | PQF ---
DAQUAN FLORES ANUP G MD [id number] [id number] CLINICAL DOCUMENTATION CLARIFICATION FORM: POST DISCHARGE Addendum to original discharge summary date: ____ Late entry note date: __ DATE: 11/08/2019 ATTN: JADEN BELL MD Please exercise your independent, professional judgment in responding to the clarification form. Clinical indicators are provided on the bottom of this form for your review Please check appropriate box(s): [ ] Acute Respiratory Failure: [ ] with Hypoxia[ ] with Hypercapnia [ ] Acute On Chronic Respiratory Failure: [ ] with Hypoxia [ ] with Hypercapnia [ ] Acute Respiratory Failure due to: (etiology) [ ] Chronic Respiratory Failure only [ ] with Hypoxia [ ] with Hypercapnia [ ] Other diagnosis [ ] Unable to determine For continuity of documentation, please document condition throughout progress notes and discharge summary. Thank You. CLINICAL INDICATORS - SIGNS / SYMPTOMS / LABS - Respiratory failure, much improved- Progress note, 11/05, Jaden Bell MD - RR: 24H on 11/01, 18 on 11/05-Vital signs - O2 sat: 88L on 11/03, 87L on 11/03, -Vital signs RISK FACTORS - Coronavirus disease pneumonia- DS, 11/05, Yolande Seymour MD TREATMENTS: - Nasal Cannula-10/24 to 11/05 - Albuterol sulfate INH- MAR, 10/24 to 10/26 (This form is maintained as a part of the permanent medical record) 2014 [employer] All Rights Reserved Sherry [email or web address]
--- NOTE | 2019-11-14 22:58 | PQF ---
DAQUAN FLORES REKHA [id number] [id number] CLINICAL DOCUMENTATION CLARIFICATION FORM: POST DISCHARGE Addendum to original discharge summary date: ____ Late entry note date: __ DATE: 11/14/2019 ATTN:HUBER AVENDANO Please exercise your independent, professional judgment in responding to the clarification form. Clinical indicators are provided on the bottom of this form for your review Please check appropriate box(s) to clarify if the following diagnosis has been ruled in or ruled out: Sepsis [ X ] Ruled in diagnosis [ ] Continue to treat [ ] Resolved [ ] Ruled out diagnosis [ ] Cannot rule out diagnosis [ ] Other diagnosis [ ] Unable to determine For continuity of documentation, please document condition throughout progress notes and discharge summary. Thank You. CLINICAL INDICATORS - SIGNS / SYMPTOMS / LABS - Sepsis -Hospital PN on , Funmilayo Cheng MD - Has Covid 19 pna with sepsis-Hospital PN on , Funmilayo Cheng MD - tmax of around 101 degrees--Hospital PN on , Funmilayo Cheng MD - abx empirically for gram-negative bacteria pneumonia--DS, 11/05, HUBER AVENDANO - 1 set of blood cultures positive bryant likely contaminant, not true pathogen- Progress note, 11/01, Michaelle Reid MD RISK FACTORS - Coronavirus disease pneumonia-DS, 11/05, HUBER AVENDANO - NENO- -DS, 11/05, HUBER AVENDANO TREATMENTS - Azithromycin.IV- MAR, 10/25 to 11/03 - Cefepime.IV- MAR, 10/27 to 10/31 [employer] (This form is maintained as a part of the permanent medical record) 2014 [employer]. All Rights Reserved Sherry [email or web address]
== END 2019-11-06 16:50 | disposition home or self-care (01) | DRG 871 ==
LOC: ERS 21:33 → 2SW 10-25 00:03 → OBSVTOIN 10-26 16:14 → 2SW 10-27 09:42
PROVIDERS: ADMIT Internal Medicine; ATTEND Internal Medicine
PROC: 8E0ZXY6 Isolation (ICD-10-PCS; principal; 2019-10-26)
DX: A41.89 Other specified sepsis (principal); U07.1 COVID-19; J96.90 Respiratory failure, unspecified, unspecified whether with hypoxia or hypercapnia; J12.89 Other viral pneumonia; N17.9 Acute kidney failure, unspecified; E87.1 Hypo-osmolality and hyponatremia; N18.3 Chronic kidney disease, stage 3 (moderate); R79.89 Other specified abnormal findings of blood chemistry; R94.5 Abnormal results of liver function studies; I12.9 Hypertensive chronic kidney disease with stage 1 through stage 4 chronic kidney disease, or unspecified chronic kidney disease; E78.00 Pure hypercholesterolemia, unspecified; E11.22 Type 2 diabetes mellitus with diabetic chronic kidney disease; F17.220 Nicotine dependence, chewing tobacco, uncomplicated; R49.0 Dysphonia; E66.01 Morbid (severe) obesity due to excess calories; D63.1 Anemia in chronic kidney disease; E78.5 Hyperlipidemia, unspecified; J45.20 Mild intermittent asthma, uncomplicated; Z90.49 Acquired absence of other specified parts of digestive tract; Z98.51 Tubal ligation status; Z68.30 Body mass index [BMI] 30.0-30.9, adult; Z79.4 Long term (current) use of insulin
CPT/HCPCS: 36415; 36416; 71045; 80053; 81001; 82550; 82553; 82728; 83540; 83550; 83735; 83880; 84484; 85007; 85025; 85027; 85379; 86140; 87040; 87149; 87635; 93005; J0360; J0456; J0692; J0696; J1650; J2405; J2920; J3475; J3490; J7050; J7512; Q0162; U0003

== ENCOUNTER 2020-08-29 19:15 | Emergency (ER) | payer MEDICARE, MEDICAID ==
[2020-08-29] MEDS ORDERED: HYDROcodone/Acetaminophen 10/325 mg Tablet ONE (20:20)
--- NOTE | 2020-08-29 20:25 | RAD ---
Exam:3 views left foot HISTORY: Pain. Swelling. COMPARISON: 12/29/2016 FINDINGS: There is soft tissue swelling. No evidence of venous emphysema. No fracture, cortical irreg ularity or periosteal reaction. Lisfranc alignment is maintained. Mild loss of joint space height due to degenerative change. IMPRESSION: 1. Soft tissue swelling. Correlate for cellulitis. 2. No radiographic evidence of osteomyelitis.
--- NOTE | 2020-08-29 20:26 | RAD ---
Exam:3 views left ankle HISTORY: Swelling. Pain. COMPARISON: None FINDINGS: There is soft tissue swelling. Ankle mortise appears be intact. Moderate degenerative cyr es. No fracture. There is atherosclerosis. IMPRESSION: Soft tissue swelling. Correlate for cellulitis.
[2020-08-29 20:30] LABS: #Eosinphils 0.1 thou/uL (0.0-0.7); #Lymphocytes 1.8 thou/uL (1.20-3.40); #Monocytes 0.6 thou/uL (0.11-0.59); #Neutrophils 3.8 thou/uL (1.40-6.50); %Eosinophils 1.9 % (0.0-10.0); %Lymphocytes 28.1 % (21.0-51.0); %Monocytes 10.1 % (0.0-10.0); %Neutrophils 59.9 % (42.0-75.0); Hemoglobin 11.5 g/dL (12.0-16.0); Mean Corpuscular Hemoglobin 27.9 pg (27.0-31.0); Mean Corpuscular Volume 87.1 fL (78.0-98.0); Mean Platelet Volume 6.4 fL (7.4-10.4); Platelet Count 455 thou/uL (130-400); RBC Distribution Width 12.6 % (11.5-14.5); Red Blood Cell (RBC) Count 4.13 mill/uL (4.20-5.40); White Blood Cell (WBC) Count 6.3 thou/uL (4.8-10.8)
[2020-08-29 20:53] LABS: ALT (SGPT) 11 U/L (8-55); AST (SGOT) 19 U/L (5-34); Alkaline Phosphatase 110 U/L (40-110); Anion Gap 14 mmol/L (10-20); BUN (Urea Nitrogen) 29 mg/dL (9.8-20.1); Bilirubin, Total 0.5 mg/dL (0.2-1.2); Calc. Creatinine Clearance 0 mL/min (70-130); Calcium 9.2 mg/dL (7.8-10.44); Carbon Dioxide 32 mmol/L (23-31); Chloride 98 mmol/L (98-107); Globulin 3.9 g/dL (2.4-3.5); Glucose 176 mg/dL (83-110); Potassium 4.7 mmol/L (3.5-5.1); Protein, Total 7.9 g/dL (5.8-8.1); Sodium 139 mmol/L (136-145)
== END 2020-08-29 21:34 | disposition home or self-care (01) ==
LOC: ERS 19:15
DX: L03.116 Cellulitis of left lower limb (principal); E11.9 Type 2 diabetes mellitus without complications; I10 Essential (primary) hypertension; E78.5 Hyperlipidemia, unspecified; D64.9 Anemia, unspecified; E78.00 Pure hypercholesterolemia, unspecified; J45.909 Unspecified asthma, uncomplicated; F17.220 Nicotine dependence, chewing tobacco, uncomplicated; F17.210 Nicotine dependence, cigarettes, uncomplicated; Z79.84 Long term (current) use of oral hypoglycemic drugs; Z79.899 Other long term (current) drug therapy
CPT/HCPCS: 36415; 80053; 85025

== ENCOUNTER 2023-02-08 13:29 | Outpatient (CLI) | payer MEDICARE, MEDICAID | END 2023-02-08 13:30 | disposition home or self-care (01) | LOC: BICMAMMO 13:29 | PROVIDERS: ATTEND Family Medicine | DX: Z12.31 Encounter for screening mammogram for malignant neoplasm of breast (principal); Z80.3 Family history of malignant neoplasm of breast | CPT/HCPCS: 77063; 77067 ==